=== PATIENT | male | born 1970 | race Caucasian/White ===

== ENCOUNTER 2017-04-05 19:00 | Observation (INO) | payer OTHER ==
[2017-04-05 19:14] VITALS: BMI 28.8
[2017-04-05] MEDS ORDERED: ASPIRIN 81 MG CHEWABLE TABLETS PO ONE (19:20)
--- NOTE | 2017-04-05 19:20 | PDOC ---
History of Present Illness <Bessie Calderon - Last Filed: 04/05/17 23:37> - History of Present Illness Beta Rowdy given by EMS (Core Measure): Yes <Larissa Clarke - Last Filed: 04/06/17 01:36> - General Chief Complaint: Lightheaded Stated Complaint: WEAKNESS/DIZZY Time Seen by Provider: 04/05/17 19:13 - History of Present Illness Initial Comments: 04/05/17 19:48 The patient is a 45 year old male, with significant past medical history for ESRD on HD with left arm fistula, CAD s/p triple bypass (2016), hypertension, Hyperlipidemia, and Diabetes Mellitus, who presents to the emergency department today via ems for evaluation of dizziness, diaphoresis, and generalized weakness today. He reports a mild, short lasting chest pain after lifting a heavy box with his son earlier today. He states his chest pain resolved on its own and reports becoming very sweaty and developing dizziness shortly after the chest pain resolved. He denies any chest pain currently, or since the onset before his ED arrival. He states his dizziness is "like the room is spinning". He states his dizziness has not resolved since the onset, however, has alleviate He states he became diaphoretic and dizzy shortly after the chest pain onset/ d slightly. He denies shortness of breath, headache, palpitations, blurred vision and dizziness. He denies fever, chills, nausea, vomit, diarrhea and constipation. He denies dysuria, frequency, urgency and hematuria. Allergies: NKDA Past surgical history: triple bypass Social history: Pt denies toxic habits PCP - Dr. Philip Yu ([phone]) Director Of Clinical Applications - Dr. Castro (Bessie Calderon) Past History <Bessie Calderon - Last Filed: 04/05/17 23:37> - Past Medical History Anemia: No Asthma: No Cancer: No Cardiac Disorders: Yes (mi ) CVA: No COPD: No CHF: No Dementia: No Diabetes: Yes (NIDDM) Dialysis: Yes (left arm AV fistula, M-W-F) GI Disorders: No Disorders: No HTN: Yes Hypercholesterolemia: Yes Liver Disease: No Suicide Attempt (Hx): No Seizures: No Thyroid Disease: No - Surgical History Cardiac Surgery: Yes (STENT-02/08/14,TRIPLE BYPASS 03/2015) - Immunization History Immunization Up to Date: Yes - Psycho/Social/Smoking Cessation Hx Anxiety: No Suicidal Ideation: No Smoking Status: No Smoking History: Never smoked Have you smoked in the past 12 months: No Number of Cigarettes Smoked Daily: 0 Hx Alcohol Use: No Drug/Substance Use Hx: No Substance Use Type: None Hx Substance Use Treatment: No <Larissa Clarke - Last Filed: 04/06/17 01:36> - Past Medical History Allergies/Adverse Reactions: Allergies Allergy/AdvReac Type Severity Reaction Status Date / Time No Known Allergies Allergy Verified 06/23/16 10:51 Home Medications: Ambulatory Orders Aspirin [ASA -] 81 mg PO DAILY 04/21/15 Atorvastatin Ca [Lipitor] 80 mg PO HS 04/21/15 Clopidogrel Bisulfate [Plavix -] 75 mg PO DAILY 04/21/15 Glipizide [Glipizide ER] 5 mg PO BID 04/21/15 Metoprolol Succinate [Toprol XL -] 50 mg PO BID #0 tab.sr.24h 12/03/15 Ranolazine [Ranexa] 500 mg PO BID 06/22/16 Cardiac Specific PMH - Complaint Specific PMHX Pacemaker: No <Larissa Clarke - Last Filed: 04/06/17 01:36> Review of Systems - Review of Systems Able to Perform ROS?: Yes <Bessie Calderon - Last Filed: 04/05/17 23:37> <Larissa Clarke - Last Filed: 04/06/17 01:36> - Review of Systems Comments:: 04/05/17 19:54 CONSTITUTIONAL: (+) generalized weakness,Absent: fever, chills, diaphoresis, malaise, loss of appetite HEENT: Absent: rhinorrhea, nasal congestion, throat pain, throat swelling, difficulty swallowing, mouth swelling, ear pain, eye pain, visual Changes CARDIOVASCULAR: (+) diaphoretic, Absent: chest pain, syncope, palpitations, irregular heart rate , lightheadedness, peripheral edema RESPIRATORY: Absent: cough, shortness of breath, dyspnea with exertion, orthopnea, wheezing, stridor, hemoptysis GASTROINTESTINAL: Absent: abdominal pain, abdominal distension, nausea, vomiting, diarrhea, constipation, melena, hematochezia GENITOURINARY: Absent: dysuria, frequency, urgency, hesitancy, hematuria, flank pain, genital pain MUSCULOSKELETAL: Absent: myalgia, arthralgia, joint swelling SKIN: Absent: rash, itching, pallor HEMATOLOGIC/IMMUNOLOGIC: Absent: easy bleeding, easy bruising, lymphadenopathy, frequent infections ENDOCRINE: Absent: unexplained weight gain, unexplained weight loss, heat intolerance, cold intolerance NEUROLOGIC: (+) dizziness. Absent: headache, focal weakness or paresthesias, unsteady gait, seizure, mental status changes, bladder or bowel incontinence PSYCHIATRIC: Absent: anxiety, depression, suicidal or homicidal ideation, hallucinations. (Bessie Calderon) *Physical Exam <Bessie Calderon - Last Filed: 04/05/17 23:37> <Larissa Clarke - Last Filed: 04/06/17 01:36> - Vital Signs Last Vital Signs Temp Pulse Resp BP Pulse Ox 97.8 F 64 18 157/78 99 04/05/17 19:12 04/05/17 19:12 04/05/17 19:12 04/05/17 19:12 04/05/17 19:12 - Physical Exam Comments: 04/05/17 19:56 GENERAL: Well developed, well nourished. Awake and alert. No acute distress. HEENT: Normocephalic, atraumatic. PERRLA, EOMI. No conjunctival pallor. Sclera are non- icteric. Moist mucous membranes. Oropharynx is clear. NECK: Supple. Full ROM. No JVD. Carotid pulses 2+ and symmetric, without bruits. No thyromegaly. No lymphadenopathy. CARDIOVASCULAR: Regular rate and rhythm. No murmurs, rubs, or gallops. Distal pulses are 2+ and symmetric. PULMONARY: No evidence of respiratory distress. Lungs clear to auscultation bilaterally. No wheezing, rales or rhonchi. ABDOMINAL: Soft. Non-tender. Non-distended. No rebound or guarding. No organomegaly. Normoactive bowel sounds. MUSCULOSKELETAL Normal range of motion at all joints. No bony deformities or tenderness. No CVA tenderness. EXTREMITIES: No cyanosis. No clubbing. No edema. No calf tenderness. SKIN: Warm and dry. Normal capillary refill. No rashes. No jaundice. NEUROLOGICAL: Alert, awake, appropriate. Cranial nerves 2-12 intact. Normoreflexic in the upper and lower extremities. Normal speech. Toes are down-going bilaterally. Gait is normal without ataxia. PSYCHIATRIC: Cooperative. Good eye contact. Appropriate mood and affect. (Bessie Calderon) ED Treatment Course - LABORATORY CBC & Chemistry Diagram: 04/05/17 19:27 04/05/17 19:27 <Bessie Calderon - Last Filed: 04/05/17 23:37> - LABORATORY CBC & Chemistry Diagram: 04/05/17 19:27 04/05/17 19:27 <Larissa Clarke - Last Filed: 04/06/17 01:36> - ADDITIONAL ORDERS Additional order review: Laboratory Results 04/05/17 04/05/17 04/05/17 19:27 19:27 19:27 INR 1.10 Sodium 138 Potassium 3.8 Chloride 103 Carbon Dioxide 25 Anion Gap 10 BUN 49 H Creatinine 7.1 H D Creat Clearance w eGFR 8.42 Random Glucose 75 Calcium 8.3 L Total Bilirubin 0.4 AST 27 D ALT 39 Alkaline Phosphatase 173 H D Creatine Kinase 563 H Creatine Kinase Index 0.7 CK-MB (CK-2) 4.207 H Troponin I 0.03 D B-Natriuretic Peptide 90685.94 H Total Protein 7.7 Albumin 3.8 D 04/05/17 19:27 RBC 3.48 L MCV 90.3 MCHC 34.4 RDW 13.6 MPV 9.2 Neutrophils % 53.7 Lymphocytes % 28.7 Monocytes % 11.5 H Eosinophils % 5.1 H Basophils % 1.0 - RADIOLOGY Radiology Studies Ordered: Category Date Time Status HEAD CT WITHOUT CONTRAST [CT] Stat CT Scan 04/05/17 21:13 Completed CHEST X-RAY PORTABLE* [RAD] Stat Radiology 04/05/17 19:15 Taken Radiograph Interpretation: 04/05/17 23:[address] was read by Dr. Degroot at 22:50 Impression: no evidence of acute intracranial pathology (Bessie Calderon) - Medications Given in the ED: ED Medications Discontinued Medications Generic Name Dose Route Start Last Admin Trade Name Freq PRN Reason Stop Dose Admin Aspirin 162 mg 04/05/17 19:20 04/05/17 19:46 Asa - PO 04/05/17 19:21 162 mg ONCE ONE Administration Metoprolol Succinate 50 mg 04/05/17 19:21 04/05/17 19:46 Toprol Xl - PO 04/05/17 19:22 Not Given ONCE ONE Medical Decision Making <Bessie Calderon - Last Filed: 04/05/17 23:37> <Larissa Clarke - Last Filed: 04/06/17 01:36> - Medical Decision Making 04/05/17 23:27 Dr. Castro was paged via phone answering service at this time requesting a call back or doctor to doctor consult. 04/05/17 23:38 Dr. Castro returned the call and the patient's case was discussed. (Bessie Calderon) 04/05/17 23:07 46-year-old male with a past medical history significant for coronary artery disease, coronary stents, CABG, end-stage renal disease. Brought in by ambulance today after having heart palpitations, lightheadedness, dizziness, becoming diaphoretic with left arm pain EKG did not show any acute ischemia, but did show an old infarct. He was sinus bradycardia at 59 -His first troponin was negative Dr. Castro's his grain elevator motor starter He complained of vertigo and headache and his CAT scan was done and was negative for any acute intracranial pathology He did have an echo done 12/02/2015 that showed an EF of 45%. His left ventricle was mildly dilated and LV systolic function moderately reduced. There was mild to moderate global hypokinesis of the left ventricle. There was mild to moderate mitral regurg. There was moderate tricuspid regurgitation. There was moderate pulmonary hypertension. Mild aortic regurg. There was no pericardial effusion Patient has taken aspirin, Plavix, metoprolol 04/05/17 23:47 Spoke with his grain elevator motor starter , Dr. Castro and this patient was hoping to be on the kidney transplant list, so this required an echo and stress test. He had a stress test done in the last 10 days and his grain elevator motor starter said his ejection fraction is extremely poor, about 15% and there was global hypokinesis of the ventricles. -pt to be admitted to telemetry to r/o HI 04/06/17 01:36 (Larissa Clarke) *DC/Admit/Observation/Transfer <Bessie Calderon - Last Filed: 04/05/17 23:37> - Discharge Dispostion Admit: Yes <Larissa Clarke - Last Filed: 04/06/17 01:36> Diagnosis at time of Disposition: ESRD (end stage renal disease) on dialysis CAD (coronary artery disease) Qualifiers: Coronary Disease-Associated Artery/Lesion type: [place] artery [place] vs. transplanted heart: [place] heart Associated angina: with other forms of angina Qualified Code(s): I25.118 - Atherosclerotic heart disease of [place] coronary artery with other forms of angina pectoris Chest pain Qualifiers: Chest pain type: unspecified Qualified Code(s): R07.9 - Chest pain, unspecified Diabetes mellitus Qualifiers: Diabetes mellitus type: type 1 Diabetes mellitus complication status: with kidney complications Diabetes mellitus complication detail: with chronic kidney disease Chronic kidney disease stage: unspecified stage Qualified Code(s): E10.22 - Type 1 diabetes mellitus with diabetic chronic kidney disease - Referrals - Attestations Scribe Attestion: 04/05/17 19:56 Documentation prepared by Bessie Calderon, acting as medical concierge for Larissa Clarke MD (Bessie Caldeorn)
[2017-04-05] MEDS ORDERED: METOPROLOL SUCCINATE 50 MG TAB.SR.24H (FP) PO ONE (19:21)
[2017-04-05 19:39] LABS: EOSINOPHIL 5.1 % (0-4.5); MCH 31.1 pg (25.7-33.7); MCHC 34.4 g/dl (32.0-35.9); MEAN CELL VOLUME 90.3 fl (80-96); MEAN PLT VOLUME 9.2 fl (7.5-11.1); NEUTROPHILS 53.7 % (42.8-82.8); PLATELET COUNT 207 K/MM3 (134-434); RDW 13.6 % (11.9-15.9)
[2017-04-05] MEDS ORDERED: ASPIRIN 81 MG CHEWABLE TABLETS ONE (19:40)
[2017-04-05 19:56] LABS: INR 1.1 (0.82-1.09); PROTHROMBIN TIME (PATIENT) 12.1 SEC (9.98-11.88)
[2017-04-05 20:17] LABS: ALBUMIN 3.8 g/dl (3.4-5.0); ANION GAP 10 (8-16); BILIRUBIN,TOTAL 0.4 mg/dL (0.2-1.0); CALCIUM 8.3 mg/dL (8.5-10.1); CO2 25 mmol/L (21-32); CREATININE 7.1 mg/dL (0.7-1.3); GLUCOSE,RANDOM 75 mg/dL (74-106); SGOT/AST 27 U/L (15-37); SGPT/ALT 39 U/L (12-78); TOT PROT 7.7 g/dl (6.4-8.2)
[2017-04-05 20:19] LABS: ALK PHOS 173 U/L (45-117); CPK 563 IU/L (39-308); TROPONIN I 0.03 ng/ml (0.00-0.05)
--- NOTE | 2017-04-06 00:33 | HP ---
CHIEF COMPLAINT: dizziness, SOB, chest pain PCP: Aimee, Cardiology: Matthew HISTORY OF PRESENT ILLNESS: This is a 46 year old male with a past medical history significant for ESRD on dialysis, CAD s/p CABG and stents, HTN, CHF, DM who presented to the ED with an episode of dizziness, diaphoresis, generalized weakness and chest pain after lifting a heavy box. He is feeling much better now; denies CP, dizziness. Reports SOB at time of incident but none further. ER course was notable for: (1) troponin neg x 1 (2) BNP 56935.94 (3) Recent Travel: pt denies PAST MEDICAL HISTORY: ESRD on HD CAD HTN HLD CHF DM PAST SURGICAL HISTORY: CABG, 3 Stents, multiple episodes, total of 7 AV fistula L arm Social History: Smoking: pt denies Alcohol: pt denies Drugs: pt denies Family History: mother-HTN, kidney stones father-unknown 4 brothers, 1 sister, no medical problems 5 children, no medical problems Allergies No Known Allergies Allergy (Verified 06/23/16 10:51) HOME MEDICATIONS: 3 Medication Instructions Recorded Aspirin [ASA -] 81 mg PO DAILY 04/21/15 Atorvastatin Ca [Lipitor] 80 mg PO HS 04/21/15 Clopidogrel Bisulfate [Plavix -] 75 mg PO DAILY 04/21/15 Glipizide [Glipizide ER] 5 mg PO BID 04/21/15 Metoprolol Succinate [Toprol XL -] 50 mg PO BID #0 tab.sr.24h 12/03/15 Ranolazine [Ranexa] 500 mg PO BID 06/22/16 REVIEW OF SYSTEMS CONSTITUTIONAL: Present: generalized weakness, malaise Absent: fever, chills, diaphoresis, loss of appetite, weight change HEENT: Absent: rhinorrhea, nasal congestion, throat pain, throat swelling, difficulty swallowing, mouth swelling, ear pain, eye pain, visual changes CARDIOVASCULAR: Present: chest pain, lightheadedness Absent: syncope, palpitations, irregular heart rate, peripheral edema RESPIRATORY: Absent: cough, shortness of breath, dyspnea with exertion, orthopnea, wheezing, stridor, hemoptysis GASTROINTESTINAL: Absent: abdominal pain, abdominal distension, nausea, vomiting, diarrhea, constipation, melena, hematochezia GENITOURINARY: Absent: dysuria, frequency, urgency, hesitancy, hematuria, flank pain, genital pain MUSCULOSKELETAL: Absent: myalgia, arthralgia, joint swelling, back pain, neck pain SKIN: Absent: rash, itching, pallor HEMATOLOGIC/IMMUNOLOGIC: Absent: easy bleeding, easy bruising, lymphadenopathy, frequent infections ENDOCRINE: Absent: unexplained weight gain, unexplained weight loss, heat intolerance, cold intolerance NEUROLOGIC: Present: dizziness Absent: headache, focal weakness or paresthesias, unsteady gait, seizure, mental status changes, bladder or bowel incontinence PSYCHIATRIC: Absent: anxiety, depression, suicidal or homicidal ideation, hallucinations. PHYSICAL EXAMINATION Vital Signs - 24 hr 3 04/05/17 19:12 Temperature 97.8 F Pulse Rate 64 Respiratory 18 Rate Blood Pressure 157/78 O2 Sat by Pulse 99 Oximetry (%) GENERAL: Awake, alert, and fully oriented, in no acute distress. HEAD: Normal with no signs of trauma. EYES: Pupils equal, round and reactive to light, extraocular movements intact, sclera anicteric, conjunctiva clear. No lid lag. EARS, NOSE, THROAT: Ears normal, nares patent, oropharynx clear without exudates. Moist mucous membranes. NECK: Normal range of motion, supple without lymphadenopathy, JVD, or masses. LUNGS: Breath sounds equal, clear to auscultation bilaterally. No wheezes, and no crackles. No accessory muscle use. HEART: Regular rate and rhythm, normal S1 and S2 without murmur, rub or gallop. ABDOMEN: Soft, nontender, not distended, normoactive bowel sounds, no guarding, no rebound, no masses. No hepatomegaly or splenomegaly. MUSCULOSKELETAL: Normal range of motion at all joints. No bony deformities or tenderness. No CVA tenderness. UPPER EXTREMITIES: 2+ pulses, warm, well-perfused. No cyanosis. No clubbing. No peripheral edema. LOWER EXTREMITIES: 2+ pulses, warm, well-perfused. No calf tenderness. No peripheral edema. NEUROLOGICAL: Cranial nerves II-XII intact. Normal speech. Normal gait. PSYCHIATRIC: Cooperative. Good eye contact. Appropriate mood and affect. SKIN: Warm, dry, normal turgor, no rashes or lesions noted, normal capillary refill. Laboratory Results - last 24 hr 3 04/05/17 04/05/17 04/05/17 19:27 19:27 19:27 WBC 6.0 RBC 3.48 L Hgb 10.8 L Hct 31.5 L MCV 90.3 MCH 31.1 MCHC 34.4 RDW 13.6 Plt Count 207 D MPV 9.2 Neutrophils % 53.7 Lymphocytes % 28.7 Monocytes % 11.5 H Eosinophils % 5.1 H Basophils % 1.0 INR 1.10 Sodium 138 Potassium 3.8 Chloride 103 Carbon Dioxide 25 Anion Gap 10 BUN 49 H Creatinine 7.1 H D Creat Clearance w eGFR 8.42 Random Glucose 75 Calcium 8.3 L Total Bilirubin 0.4 AST 27 D ALT 39 Alkaline Phosphatase 173 H D Creatine Kinase 563 H Creatine Kinase Index 0.7 CK-MB (CK-2) 4.207 H Troponin I 0.03 D B-Natriuretic Peptide 86854.94 H Total Protein 7.7 Albumin 3.8 D ECG: Sinus yolande, vent rate [address]/T changes: Inverted T wave lead 1, V5, V6 Lead 2 flattened T wave Inverted P wave V1, V2 Radiology Reports CXR: No obvious infiltrates/effusions, + Cardiomegaly Cranial CT without contrast Clinical information: vertigo Multiplanar imaging was performed. Intravenous contrast was not administered. No intracranial hemorrhage is seen. There is no discrete infarct within the limitations of CT. No extra-axial fluid collection is noted. There is no gross mass lesion. The ventricles and cisterns appear unremarkable. The calvarium appears intact. The partially imaged paranasal sinuses demonstrate no opacification. Impression: No CT evidence of acute intracranial pathology. Bilateral cavernous carotid artery atherosclerotic calcifications are seen which are probably somewhat more prominent than would be expected for the patient's chronologic age. Reported By: Hira Degroot MD 04/05/17 6130 ASSESSMENT/PLAN: 46yM with PMH ESRD on HD, CAD [id number], stent x7, HTN, HLD, DM presented to the ED with episode of lightheadedness, dizziness, weakness, chest pain and SOB after lifting a heavy box today. Chest pain - troponin neg x 1, trend x 2 more - ED physician spoke with Dr. Castro, pt had stress test less than 10 days ago, + EF 15%, severe LV global hypokinesis - admit for obs - cardiology consult - cont home toprol, ranexa, plavix and ASA elevated BNP - likely due to severely reduced EF, chronic heart disease as well as ESRD HTN - cont home toprol HLD - cont home lipitor DM - cont glipizide. - A1C in am - novolog sliding scale elevated Alk phos - repeat in am - will check Vit D level in am DVT PPX - chemoprophylaxis deferred as expected LOS < 48h FEN - tolerating po - BMP in am - diabetic/low sodium diet Dispo: Pt currently requires inpatient observation for management of his emergent condition. Visit type - Emergency Visit Emergency Visit: Yes ED Registration Date: 04/05/17 Care time: The patient presented to the Emergency Department on the above date and was hospitalized for further evaluation of their emergent condition. - New Patient This patient is new to me today: Yes Date on this admission: 04/06/17 - Critical Care Critical Care patient: No
--- NOTE | 2017-04-06 01:51 | PDOC ---
*Heart Score (ED) - History History: Slightly suspicious - Electrocardiogram EKG: Non specific repolarization disturbance - Age Age: </= 45 - Risk Factors Risk Factors Heart Score: Yes Hx Hypercholesterolemia, Yes Hx Hypertension, Yes Hx Diabetes Based on the list above the patient has:: >/=3 risk factors or Hx atherosclerotic disease - Troponin Troponin: </= normal limit - Score Heart Score - Total: 3
[2017-04-06 04:18] LABS: TROPONIN I 0.03 ng/ml (0.00-0.05)
[2017-04-06] MEDS ORDERED: INSULIN SLIDING SCALE (NOVOLOG) 1 VIAL SQ SCH (07:00)
[2017-04-06] MEDS ORDERED: glipiZIDE-XL 5 MG TAB.ER.24 PO SCH (07:00)
[2017-04-06] MEDS ORDERED: glipiZIDE 5 MG TABLET (FP) ONE (08:33)
[2017-04-06 08:35] LABS: BASOPHIL 0.9 % (0-2.0); EOSINOPHIL 3.1 % (0-4.5); MCH 30.1 pg (25.7-33.7); MCHC 33.1 g/dl (32.0-35.9); MEAN CELL VOLUME 90.9 fl (80-96); MEAN PLT VOLUME 9.2 fl (7.5-11.1); NEUTROPHILS 67.7 % (42.8-82.8); PLATELET COUNT 208 K/MM3 (134-434); WHITE BLOOD COUNT 6.7 K/mm3 (4.0-10.0)
[2017-04-06 09:08] LABS: ALBUMIN 3.6 g/dl (3.4-5.0); ANION GAP 12 (8-16); BILIRUBIN,TOTAL 0.4 mg/dL (0.2-1.0); CALCIUM 8.4 mg/dL (8.5-10.1); CO2 23 mmol/L (21-32); CREATININE 7.2 mg/dL (0.7-1.3); GLUCOSE,RANDOM 212 mg/dL (74-106); PHOSPHOROUS 3.9 mg/dL (2.5-4.9); SGOT/AST 23 U/L (15-37); SGPT/ALT 36 U/L (12-78); TOT PROT 7.4 g/dl (6.4-8.2)
[2017-04-06 09:09] LABS: ALK PHOS 176 U/L (45-117); TROPONIN I 0.03 ng/ml (0.00-0.05)
[2017-04-06] MEDS ORDERED: ASPIRIN 81 MG CHEWABLE TABLETS PO SCH (10:00)
[2017-04-06] MEDS ORDERED: RANOLAZINE E.R. 500 MG TABLET (FP) PO SCH (10:00)
[2017-04-06] MEDS ORDERED: CLOPIDOGREL BISULFATE 75 MG TABLET (FP) PO SCH (10:00)
[2017-04-06] MEDS ORDERED: METOPROLOL SUCCINATE 50 MG TAB.SR.24H (FP) PO SCH (10:00)
--- NOTE | 2017-04-06 10:45 | EKG ---
Test Reason : Blood Pressure : / mmHG Vent. Rate : 059 BPM Atrial Rate : 059 BPM P-R Int : 152 ms QRS Dur : 116 ms QT Int : 470 ms P-R-T Axes : 043 015 141 degrees QTc Int : 465 ms SINUS BRADYCARDIA POSSIBLE LEFT ATRIAL ENLARGEMENT possible lateral ischemia LATERAL INFARCT (CITED ON OR BEFORE 01-DEC-2015) ABNORMAL ECG WHEN COMPARED WITH ECG OF 01-DEC-2015 07:33, PREMATURE VENTRICULAR COMPLEXES ARE NO LONGER PRESENT VENT. RATE HAS DECREASED BY 32 BPM Confirmed by BOBBY ANDREW, MARVA ([id number]) on 04/06/2017 10:45:15 AM Referred By: Confirmed By:MARVA ROSALES MD
--- NOTE | 2017-04-06 10:54 | DS ---
Physical Exam: SUBJECTIVE: Patient seen and examined in the ED. States his sweating and dizziness have resolved. He is eager to go home. Denies fever, chill, cp, sob. OBJECTIVE: Vital Signs Period Temp Pulse Resp BP Sys/Link Pulse Ox Last 24 Hr 85 18-18 183/85 99-100 PE Neuro: alert, awake, cn 2-12intact Pulm: CTAB CV: s1 s2 +systolic murmur Abd: s nt nd + bs Ext: LUE AVF + thrill, + bruit Laboratory Results - last 24 hr 04/06/17 04/06/17 04/06/17 03:26 08:15 08:15 WBC 6.7 RBC 3.69 L Hgb 11.1 L Hct 33.6 L MCV 90.9 MCH 30.1 MCHC 33.1 RDW 14.0 Plt Count 208 MPV 9.2 Neutrophils % 67.7 D Lymphocytes % 19.6 D Monocytes % 8.7 Eosinophils % 3.1 Basophils % 0.9 Sodium Potassium Chloride Carbon Dioxide Anion Gap BUN Creatinine Creat Clearance w eGFR Random Glucose Hemoglobin A1c % Calcium Phosphorus Magnesium Total Bilirubin AST ALT Alkaline Phosphatase Creatine Kinase 382 H 379 H Creatine Kinase Index 0.9 0.8 CK-MB (CK-2) 3.746 H 3.273 Troponin I 0.03 0.03 Total Protein Albumin 04/06/17 04/06/17 08:15 08:15 WBC RBC Hgb Hct MCV MCH MCHC RDW Plt Count MPV Neutrophils % Lymphocytes % Monocytes % Eosinophils % Basophils % Sodium 138 Potassium 4.3 Chloride 103 Carbon Dioxide 23 Anion Gap 12 BUN 52 H Creatinine 7.2 H Creat Clearance w eGFR 8.28 Random Glucose 212 H D Hemoglobin A1c % 8.2 H D Calcium 8.4 L Phosphorus 3.9 Magnesium 2.0 Total Bilirubin 0.4 AST 23 ALT 36 Alkaline Phosphatase 176 H Creatine Kinase Creatine Kinase Index CK-MB (CK-2) Troponin I Total Protein 7.4 Albumin 3.6 HOSPITAL COURSE: Date of Admission:04/05/17 Date of Discharge: 04/06/17 Minutes to complete discharge: 36 Discharge Summary Reason For Visit: DIABETES MELLITUS/CORONARY ARTERY DIASEASE/END STA Current Active Problems Chest pain (Acute) CAD (coronary artery disease) (Chronic) Diabetes mellitus (Chronic) ESRD (end stage renal disease) on dialysis (Chronic) Hospital Course: Initial Hospital Course: Briefly, this 46 year old male with a past medical history significant for ESRD on dialysis, CAD s/p CABG 2014 and stents (x7), HTN, CHF, DM II presented to the ED with an episode of dizziness, diaphoresis, generalized weakness and chest pain after lifting a heavy box. Subsequent Hospital Course/Progress Note/Discharge Summary: Assessment/Plan 45 yo male here with cp, known CAD hx (mult prior PCIs, then cabg 2014 last stent 09/2014?), dCHF, ESRD on HD, HTN, DM here with episode of dizzy/ diaphoresis. Plan: Dizziness/Diaphoresis - Likely vasovagal - EKG no acute ischemic changes - r/o [place] serial trops negative - Discussed with Nephrology to monitor BP during HD, next session is today @ 1800 Chronic systolic CHF - Not in exacerbation - Continue troprol - Off REMY d/t ESRD CAD, Chronic - s/p multiple stents, CABG - Continue asa, plavix, ranexa 500mg BID - Recent stress [address] Castro negative for ischemia - Refer to cardiology note for detailed procedures Elevated BNP - likely due to severely reduced EF, chronic heart disease as well as ESRD - HD tonight outpt HD center HTN - cont home toprol HLD - cont home lipitor DM - cont glipizide Dispo: - Home with HD and cardiac f/u - Pt aware and agrees to above plan Condition: Stable - Instructions Diet, Activity, Other Instructions: Please return to the ED for any new, persistent, or worsening symptoms. Follow up with your PCP in 1 week Take home medications as directed Continue HD on MWF schedule Follow up with cardiology next week Referrals: Philip Yu [Primary Care Provider] - Darren Castro MD [Staff Physician] - Disposition: HOME - Home Medications Comprehensive Discharge Medication List: Ambulatory Orders Aspirin [ASA -] 81 mg PO DAILY 04/21/15 Atorvastatin Ca [Lipitor] 80 mg PO HS 04/21/15 Clopidogrel Bisulfate [Plavix -] 75 mg PO DAILY 04/21/15 Glipizide [Glipizide ER] 5 mg PO BID 04/21/15 Metoprolol Succinate [Toprol XL -] 50 mg PO BID #0 tab.sr.24h 12/03/15 Ranolazine [Ranexa] 500 mg PO BID 06/22/16 This patient is new to me today: Yes Date on this admission: 04/06/17 Emergency Visit: Yes ED Registration Date: 04/05/17 Care time: The patient presented to the Emergency Department on the above date and was hospitalized for further evaluation of their emergent condition. Critical Care patient: No - Discharge Referral Referred to [facility] Med P.C[facility] No
[2017-04-06 11:38] VITALS: BP 164/91; PULSE 88; TEMP 98
--- NOTE | 2017-04-06 12:04 | CON.CARD ---
Cardiology Consult (text) - Consultation Consultation Note: Chief Complaint: diaphoresis, dizzy History of Present Illness: 46 yo male here with diaphoresis, dizziness. Last week pt reports that they began taking more vol off during HD sessions to reach a lower dry wt. He had been feeling fine but then yesterday he was walking outside and felt weak and dizzy and had profuse sweating. No loc. No cp, sob, palps, pnd, orthopnea, le edema. Son called ambulance and brought to ER. Sxs resolved shortly and now pt feels fine, asking to go home. Sees me for cardio. PMH: ESRD known CAD hx (mult prior PCIs, then cabg 2014). HTN HPL DM never cigs - Past Medical History Cardio/Vascular: Yes: CAD, HTN, Hyperlipdemia Renal/: Yes: Renal Failure Endocrine: Yes: Diabetes Mellitus - Past Surgical History Past Surgical History: Yes: CABG (04/09/15 at [facility]), Stent (7 cardiac stents) - Alcohol/Substance Use Hx Alcohol Use: No History of Substance Use: reports: None - Smoking History Smoking history: Never smoked Have you smoked in the past 12 months: No Aproximately how many cigarettes per day: 0 - Social History Usual Living Arrangement: Alone ADL: Independent Occupation: works in a custodial History of Recent Travel: No Home Medications - Allergies Allergies/Adverse Reactions: Allergies Allergy/AdvReac Type Severity Reaction Status Date / Time No Known Allergies Allergy Verified 06/23/16 10:51 - Home Medications Home Medications Medication Instructions Recorded Aspirin [ASA -] 81 mg PO DAILY 04/21/15 Atorvastatin Ca [Lipitor] 80 mg PO HS 04/21/15 Clopidogrel Bisulfate [Plavix -] 75 mg PO DAILY 04/21/15 Glipizide [Glipizide ER] 5 mg PO BID 04/21/15 Metoprolol Succinate [Toprol XL -] 50 mg PO BID #0 tab.sr.24h 12/03/15 Ranolazine [Ranexa] 500 mg PO BID 06/22/16 Family Disease History - Family Disease History Family Disease History: Other: Father (estranged), Mother (kidney stones, HTN), Brother (4 brothers healthy and living), Sister (1 sister healthy and living) Review of Systems - Review of Systems Constitutional: denies: Chills, Fever Eyes: denies: Eye Pain HENT: denies: Nasal Congestion Neck: denies: Stiffness Cardiovascular: denies: Palpitations Respiratory: reports: PND. denies: Orthopnea Gastrointestinal: denies: Diarrhea, Rectal Bleeding Genitourinary: denies: Burning, Hematuria Musculoskeletal: denies: Muscle Pain Integumentary: denies: Rash Neurological: denies: Numbness, Seizure, Syncope Hematology/Lymphatic: denies: Excessive Bleeding Vital Signs: Vital Signs Period Temp Pulse Resp BP Sys/Link Pulse Ox Last 24 Hr 97.8 F-98.0 F 64-88 16-18 157-183/78-91 99-100 Constitutional: Yes: Well Nourished, No Distress Eyes: No: Sclera Icterus HENT: No: Nasal Congestion Neck: No: Decreased ROM Respiratory: Yes: CTA Bilaterally. No: Accessory Muscle Use, Rales, Wheezes Gastrointestinal: Yes: Normal Bowel Sounds. No: Distention, Hepatomegaly, Palpable Mass, Tenderness Cardiovascular: Yes: Regular Rate and Rhythm JVD: no Carotid Bruit: No PMI: Non-Displaced Heart Sounds: Yes: S1, S2. No: Gallop Murmur: Yes: Systolic Murmur (HSM at LLSB). No: Diastolic Murmur Musculoskeletal: Yes: Other (No kyphosis) Extremities: No: Cold, Cyanosis Edema: No Peripheral Pulses: 2+ Left Carotid, 2+ Right Carotid, 2+ Left Doralis Pedis, 2+ Right Dorsalis Pedis Integumentary: No: Jaundice diaphoresis Neurological: Yes: Alert, Oriented (x3) Psychiatric: No: Agitated - Other Data Labs, Other Data: Laboratory Last Values WBC 6.7 K/mm3 (4.0-10.0) 04/06/17 08:15 RBC 3.69 M/mm3 (4.00-5.60) L 04/06/17 08:15 Hgb 11.1 GM/dL (11.7-16.9) L 04/06/17 08:15 Hct 33.6 % (35.4-49) L 04/06/17 08:15 MCV 90.9 fl (80-96) 04/06/17 08:15 MCH 30.1 pg (25.7-33.7) 04/06/17 08:15 MCHC 33.1 g/dl (32.0-35.9) 04/06/17 08:15 RDW 14.0 % (11.9-15.9) 04/06/17 08:15 Plt Count 208 K/MM3 (134-434) 04/06/17 08:15 MPV 9.2 fl (7.5-11.1) 04/06/17 08:15 Neutrophils % 67.7 % (42.8-82.8) D 04/06/17 08:15 Lymphocytes % 19.6 % (8-40) D 04/06/17 08:15 Monocytes % 8.7 % (3.8-10.2) 04/06/17 08:15 Eosinophils % 3.1 % (0-4.5) 04/06/17 08:15 Basophils % 0.9 % (0-2.0) 04/06/17 08:15 INR 1.10 (0.82-1.09) 04/05/17 19:27 Sodium 138 mmol/L (136-145) 04/06/17 08:15 Potassium 4.3 mmol/L (3.5-5.1) 04/06/17 08:15 Chloride 103 mmol/L (98-107) 04/06/17 08:15 Carbon Dioxide 23 mmol/L (21-32) 04/06/17 08:15 Anion Gap 12 (8-16) 04/06/17 08:15 BUN 52 mg/dL (7-18) H 04/06/17 08:15 Creatinine 7.2 mg/dL (0.7-1.3) H 04/06/17 08:15 Creat Clearance w eGFR 8.28 (>60) 04/06/17 08:15 Random Glucose 212 mg/dL (74-106) H D 04/06/17 08:15 Hemoglobin A1c % 8.2 % (4.8-6.0) H D 04/06/17 08:15 Calcium 8.4 mg/dL (8.5-10.1) L 04/06/17 08:15 Phosphorus 3.9 mg/dL (2.5-4.9) 04/06/17 08:15 Magnesium 2.0 mg/dL (1.8-2.4) 04/06/17 08:15 Total Bilirubin 0.4 mg/dL (0.2-1.0) 04/06/17 08:15 AST 23 U/L (15-37) 04/06/17 08:15 ALT 36 U/L (12-78) 04/06/17 08:15 Alkaline Phosphatase 176 U/L (45-117) H 04/06/17 08:15 Creatine Kinase 379 IU/L (39-308) H 04/06/17 08:15 Creatine Kinase Index 0.8 % (0.0-5.0) 04/06/17 08:15 CK-MB (CK-2) 3.273 ng/mL (0.5-3.6) 04/06/17 08:15 Troponin I 0.03 ng/ml (0.00-0.05) 04/06/17 08:15 B-Natriuretic Peptide 80962.94 pg/ml (5-125) H 04/05/17 19:27 Total Protein 7.4 g/dl (6.4-8.2) 04/06/17 08:15 Albumin 3.6 g/dl (3.4-5.0) 04/06/17 08:15 ecg 04/05/17: sr, nl intervals, lat twis, no st changes, no sig change prior ecg cxr: clear lungs Echo 01/2014: normal LV/RV function, mild LVH, no sig valv abn echo here 11/2015: mild lve, mild-mod dec lvef, global HK, nl rv, mild lae, mild- mod mr, mod tr, rvsp 40-50, mild ar, mod pr Assessment/Plan 45 yo male here with cp, known CAD hx (mult prior PCIs, then cabg 2014 last stent 09/2014?), dCHF, ESRD on HD, HTN, DM here with episode of dizzy/ diaphoresis. dizziness, diaphoresis: -possible vagal episode, possibly related to increased vol removed during hd sessions this past week -no obvious cardiac etiology -pt feeling well now, back to baseline chronic syst CHF: -hx of ischemic CM -stable vol status with HD -cont toprol, no ester 2/2 esrd CAD, chronic: -severe 3VD on initial angio 01/2014--offerred CABG then , declined and wanted trial of multi-vessel PCI -s/p prox LAD HALLIE PCI 01/2014 , then staged bifurcation distal LCx/ OM1 HALLIE stent (V stenting) 02/2014--residual diffuse RCA disease -05/2014 CBPTCA of severe diffuse ISR of bifurcation distal LCx/ OM1 HALLIE stent ( V stenting) -Re-cathed 09/2014 and found to have severe diffuse ISR of bifurcation distal LCx/ OM1 HALLIE stent (V stenting), and new moderate disease in prox LAD just proximal to patent old stent, residual diffuse RCA disease--medical rx. New HALLIE to OM1 done, distal LCx is now jailed and TO -Re-cathed 03/2015: ISR of second layer of HALLIE in OM and progression of CAD elsewhere--referred for CABG--agreed (off pump--RAMIREZ to LAD, SP to OM and SVG to RPDA) -then had another cath 2015 with no interventions done as no culprit lesions identified -cad stable presently, recent nuclear stress test in office this month showed no ischemia -cont home toprol, statin, ranexa -on DAPT since prior to cabg (mult PCIs with ISRs), tolerating Anemia -sec to ESRD in past, chronic -counts stable here DM-type 2 -defer to primary team ESRD on HD -per renal HTN -stable on meds cardiac eaton stable for dc
[2017-04-06] MEDS ORDERED: ATORVASTATIN CA 80 MG TABLET (FP) PO SCH (22:00)
== END 2017-04-06 11:24 | disposition home or self-care (01) ==
LOC: JER 19:00 → JERBED 23:53
PROVIDERS: ADMIT Internal Medicine; ATTEND Nurse Practitioner Acute Care
DX: I12.0 Hypertensive chronic kidney disease with stage 5 chronic kidney disease or end stage renal disease (principal); N18.6 End stage renal disease; Z99.2 Dependence on renal dialysis; I25.118 Atherosclerotic heart disease of native coronary artery with other forms of angina pectoris; R07.9 Chest pain, unspecified; E10.22 Type 1 diabetes mellitus with diabetic chronic kidney disease; E78.5 Hyperlipidemia, unspecified; Z95.1 Presence of aortocoronary bypass graft; Z79.82 Long term (current) use of aspirin; Z79.84 Long term (current) use of oral hypoglycemic drugs; R79.89 Other specified abnormal findings of blood chemistry; R74.8 Abnormal levels of other serum enzymes; I50.22 Chronic systolic (congestive) heart failure
CPT/HCPCS: 36415; 70450-TC; 71010-TC; 80053; 82306; 82553; 83036; 83735; 83880; 84100; 84484; 85025; 85610; 93005; 93010; 99285-25; G0378

== ENCOUNTER 2018-10-12 13:40 | Observation (INO) | payer OTHER ==
--- NOTE | 2018-10-12 14:28 | PDOC ---
History of Present Illness - General Chief Complaint: Shortness of Breath Stated Complaint: SENT BY PMD FOR PNEUMONIA Time Seen by Provider: 10/12/18 14:09 History Source: Patient Exam Limitations: Clinical Condition - History of Present Illness Initial Comments: 10/12/18 14:30 Patient with history of congestive heart failure, hyperlipidemia, known insulin- dependent diabetes, renal failure and cardiac bypass sent informal urgent care for admission for pneumonia. Patient reported 2 weeks history of yellow productive cough with fevers, nasal congestion, shortness of breath and intermittent wheezing with malaise. Patient was seen with urgent care today which x-ray shows right-sided pleural effusion with right infiltrate. Patient present with x-ray imaging and reported reading pneumonia. Patient called neurology who advised him to come in for IV antibiotics for pneumonia. Patient reported last fever 4 days ago 10 3F. Patient denies any other symptoms Timing/Duration: other (2 weeks) Past History - Past Medical History Allergies/Adverse Reactions: Allergies Allergy/AdvReac Type Severity Reaction Status Date / Time No Known Allergies Allergy Verified 10/12/18 13:46 Home Medications: Ambulatory Orders Aspirin [ASA -] 81 mg PO DAILY 04/21/15 Atorvastatin Ca [Lipitor] 80 mg PO HS 04/21/15 Clopidogrel Bisulfate [Plavix -] 75 mg PO DAILY 04/21/15 Glipizide [Glipizide ER] 5 mg PO BID 04/21/15 Metoprolol Succinate [Toprol XL -] 50 mg PO BID #0 tab.sr.24h 12/03/15 Ranolazine [Ranexa] 500 mg PO BID 06/22/16 Anemia: No Asthma: No Cancer: No Cardiac Disorders: Yes (mo ) CVA: No COPD: No CHF: No Dementia: No Diabetes: Yes Dialysis: Yes GI Disorders: No Disorders: No HTN: Yes Hypercholesterolemia: Yes Liver Disease: No Seizures: No Thyroid Disease: No Other medical history: av fistula left arm - Surgical History Cardiac Surgery: Yes (7STENTs-02/08/14,TRIPLE BYPASS 03/2015) - Immunization History Immunization Up to Date: Yes - Suicide/Smoking/Psychosocial Hx Smoking Status: No Smoking History: Never smoked Have you smoked in the past 12 months: No Number of Cigarettes Smoked Daily: 0 Information on smoking cessation initiated: No Hx Alcohol Use: No Drug/Substance Use Hx: No Substance Use Type: None Hx Substance Use Treatment: No Review of Systems - Review of Systems Able to Perform ROS?: Yes Is the patient limited Singaporean proficient: No Constitutional: Yes: Chills, Fever, Weakness HEENTM: Yes: Symptoms Reported, See HPI, Nose Congestion. No: Eye Pain, Blurred Vision, Tearing, Recent change in vision, Double Vision, Cataracts, Ear Pain, Ocular Prothesis, Ear Discharge, Nose Pain, Tinnitus, Nose Bleeding, Hearing Loss, Throat Pain, Throat Swelling, Mouth Pain, Dental Problems, Difficulty Swallowing, Mouth Swelling, Other Respiratory: Yes: Symptoms reported, See HPI, Cough, Shortness of Breath. No: Orthopnea, SOB with Exertion, SOB at Rest, Stridor, Wheezing, Productive cough, Hemoptysis, Other Cardiac (ROS): No: Symptoms Reported, See HPI, Chest Pain, Edema, Irregular Heart Rate, Lightheadedness, Palpitations, Syncope, Chest Tightness, Other ABD/GI: No: Nausea, Vomiting All Other Systems: Reviewed and Negative *Physical Exam - Vital Signs Last Vital Signs Temp Pulse Resp BP Pulse Ox 98.3 F 83 19 148/81 100 10/12/18 13:43 10/12/18 13:43 10/12/18 13:43 10/12/18 13:43 10/12/18 13:43 - Physical Exam Comments: 10/12/18 14:32 GENERAL: Well developed, well nourished. Awake and alert. No acute distress. HEENT: Normocephalic, atraumatic. PERRLA, EOMI. No conjunctival pallor. Sclera are non-icteric. Moist mucous membranes. Oropharynx is clear. NECK: Supple. Full ROM. CARDIOVASCULAR: Regular rate and rhythm. No murmurs, rubs, or gallops. Distal pulses are 2+ and symmetric. PULMONARY: Mild diffuse wheezing with mild rales. No evidence of respiratory distress. Lungs clear to auscultation bilaterally. No wheezing, rales or rhonchi. ABDOMINAL: Soft. Non-tender. Non-distended. No rebound or guarding. No organomegaly. Normoactive bowel sounds. MUSCULOSKELETAL Normal range of motion at all joints. EXTREMITIES: No cyanosis. No clubbing. No edema. No calf tenderness. SKIN: Warm and dry. Normal capillary refill. NEUROLOGICAL: Alert, awake, appropriate. Gait is normal without ataxia. PSYCHIATRIC: Cooperative. Good eye contact. Appropriate mood General Appearance: Yes: Nourished, Appropriately Dressed. No: Apparent Distress Moderate Sedation - Procedure Monitoring Vital Signs: Procedure Monitoring Vital Signs Temperature 98.3 F 10/12/18 13:43 Pulse Rate 83 10/12/18 13:43 Respiratory Rate 19 10/12/18 13:43 Blood Pressure 148/81 10/12/18 13:43 O2 Sat by Pulse Oximetry (%) 100 10/12/18 13:43 ED Treatment Course - LABORATORY CBC & Chemistry Diagram: 10/12/18 17:25 10/12/18 17:25 Medical Decision Making - Medical Decision Making 10/12/18 14:33 Patient with history of multiple comorbidities presenting with complaint of 2 weeks history of yellow productive cough with intermittent shortness of breath, fever and nasal congestion. Patient seen in urgent care today and chest x-ray shows right sided pneumonia with pleural effusion and was advised to come to the emergency room. Patient present with x-ray report and imaging on CD. CBC, CMP and blood cultures sent. UA urine culture labs ordered. Nebulizer treatment with Atrovent and albuterol ordered. The patient will be admitted for management of pneumonia. 10/12/18 18:09 X-rays brought in by patient from urgent care uploaded to pax which shows right lower lobes infiltrate with right pleural effusion and cardiomegaly. CBC shows no acute pathology. Chemistry shows elevated BUN/CR which is expected given h/o renal failure on dialysis which patient next appointment for dialysis is tomorrow. 10/12/18 18:54 Patient seen by medicine and admitted to [facility] for obs. Patient started on Vanco and Zosyn *DC/Admit/Observation/Transfer Diagnosis at time of Disposition: ESRD (end stage renal disease) on dialysis Pneumonia Qualifiers: Pneumonia type: due to unspecified organism Laterality: right Lung location: unspecified part of lung Qualified Code(s): J18.9 - Pneumonia, unspecified organism CHF (congestive heart failure) Qualifiers: Heart failure type: unspecified Heart failure chronicity: chronic Qualified Code(s): I50.9 - Heart failure, unspecified HTN (hypertension) Qualifiers: Hypertension type: essential hypertension Qualified Code(s): I10 - Essential ( primary) hypertension Diabetes mellitus Qualifiers: Diabetes mellitus type: type 2 Diabetes mellitus assisted insulin use: without assisted use Diabetes mellitus complication status: without complication Qualified Code(s): E11.9 - Type 2 diabetes mellitus without complications - Discharge Dispostion Condition at time of disposition: Stable Decision to Admit order: Yes - Referrals - Patient Instructions - Post Discharge Activity
[2018-10-12] MEDS ORDERED: ALBUTEROL SO4 2.5/IPRATROPIUM 0.5 INH SOL 3 ML VIAL.NEB. NEB ONE ×2 (14:29→15:39)
[2018-10-12 17:51] LABS: EOS % 3.6 % (0-4.5); HEMATOCRIT 31.5 % (35.4-49); HEMOGLOBIN 10.9 GM/dL (11.7-16.9); LYMPH % 19.6 % (8-40); MCH 31.3 pg (25.7-33.7); MCHC 34.4 g/dl (32.0-35.9); MEAN CELL VOLUME 90.9 fl (80-96); MEAN PLT VOLUME 10.5 fl (7.5-11.1); MONO % 10.4 % (3.8-10.2); NEUT % 65.4 % (42.8-82.8); PLATELET COUNT 152 K/MM3 (134-434); RBC 3.47 M/mm3 (4.00-5.60); RDW 14.9 % (11.9-15.9)
[2018-10-12 18:07] LABS: ALBUMIN 3.4 g/dl (3.4-5.0); ALK PHOS 144 U/L (45-117); ANION GAP 10 MMOL/L (8-16); BILIRUBIN,TOTAL 0.4 mg/dL (0.2-1); BLOOD UREA NITROGEN 42 mg/dL (7-18); CALCIUM 8.6 mg/dL (8.5-10.1); CHLORIDE 100 mmol/L (98-107); CO2 25 mmol/L (21-32); CREATININE 6.3 mg/dL (0.55-1.3); GLUCOSE,RANDOM 155 mg/dL (74-106); POTASSIUM 3.6 mmol/L (3.5-5.1); SGOT/AST 26 U/L (15-37); SGPT/ALT 45 U/L (13-61); SODIUM 136 mmol/L (136-145)
[2018-10-12] MEDS ORDERED: VANCOMYCIN 1 GM in D5W (PRE-DOCKED) 1,000 MG/250 ML IVPB ONE (18:51)
[2018-10-12] MEDS ORDERED: PIPERACILLIN/TAZOB 3.375 GM 3.375 GM in DEXTROSE 5%-WATER - 50 ML IVPB ONE (18:51)
[2018-10-12] MEDS ORDERED: PIPERACILLIN/TAZOB 3.375 GM 3.375 GM/50 ML BAG IVPB ONE (18:56)
--- NOTE | 2018-10-12 19:19 | PN ---
Teaching Attending Note Name of Resident: Yanely Morgan ATTENDING PHYSICIAN STATEMENT I saw and evaluated the patient. I reviewed the resident's note and discussed the case with the resident. I agree with the resident's findings and plan as documented. SUBJECTIVE: Seen and examined; please refer to resident note for further historical documentation. Briefly, this is a 48 y/o male with a CC of SOBx 2 weeks worsening. Fevers up to 103 at home. Malaise. Productive cough. UC in the AM. Treated with zithromax at the begininning of the month from PCP. Endorses chills but no fever. No CP, syncope, etc. No WBC, no fever. Admission requested for pneumonia. Was seen at then brought here. 10 sys ROS done and negative aside from HPI PMH (D-CHF, HLD, IDDM, ESRD on HD (MWF, Dr. Zuniga, E AVF), CAD s/p CABG/ PCIx7), PSH, Family hx, Social hx reviewed Medication list reviewed OBJECTIVE: VS, labs, imaging reviewed NAD, AAO, Resting comfortably in bed NC AT EOMI PERRLA RRR s1/2 no mgr Lungs mostly clear (mild crackles near L-base?), w/ sym exp NT ND +BS CN2-12 wnl, no fnd Normal mood, appropriate affect Repeating imaging here Labs reviewed; no leukocytosis, BUN/Cr elevated stereotypically ASSESSMENT AND PLAN: Patient presents from for suspected pneumonia 1) Suspected Pneumonia -No WBC, no fever; CT pending (want to better describe RLL changes). Benign exam satting 100% on RA. He has a chronically elevated BUN; no other parts of CURB-65 elevated. He is Risk Class II with his PORT/PSI score. Likely can be converted to PO abx in the next 24 hours and monitored. -CAP empiric tx; checking EKG to assess the QTc. -Followup urine studies, influenza, sputum cx. -Can consider CT Chest if further imaging required 2) ESRD on HD -Consulting nephrology for HD; monitor BMP 3) D-CHF -Doesn't appear to be a demetris exacerbation -Monitor 4) IDDM -SSI; confirm if basal coverage then continue 5) HTN -Verify and continue home meds 6) HLD -Verify and continue home meds 7) CAD s/p CABG/PCI -Continue home meds; no typical/atypical cardiac symptoms FENA -PO -PRN replete -Renal diet -As tolerated Full Code
--- NOTE | 2018-10-12 19:33 | HP ---
<Yanely Morgan - Last Filed: 10/13/18 09:49> CHIEF COMPLAINT: SOB x 2 weeks PCP: Dr. Drake HISTORY OF PRESENT ILLNESS: 48 y/o M with PMH diastolic CHF, HLD, IDDM, ESRD (on dialysis M,W, F. Has L AVF) , hx past CABG 2014, cath 2014, 2015, hx 7 stents, who presents to the ED c/o gradually worsening SOB over the past two weeks. As per pt, he developed SOB over the past two weeks and it has been gradually worsening. States that it has been a/w productive cough with clear sputum, without blood. Also endorses fever up to 103.5F which occurred last week, however has been afebrile since. During this time, also endorses chills. Otherwise, without chest pain, pressure, N/V, or changes in urinary or bowel function. Has had recurrent episodes of PNA recently. States his last episodes were at the end of August and beginning of September. Was tx with azithromycin 500mg for 5 days for each of the episodes. Compliant with meds, and last dialysis session was yesterday. Nephro is Dr. Drake. 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 Smoking: denies Alcohol: denies Drugs: denies Family History: mother - HTN Allergies No Known Allergies Allergy (Verified 10/12/18 13:46) HOME MEDICATIONS: Home Medications Medication Instructions Recorded Aspirin [ASA -] 81 mg PO DAILY 04/21/15 Atorvastatin Ca [Lipitor] 80 mg PO HS 04/21/15 Clopidogrel Bisulfate [Plavix -] 75 mg PO DAILY 04/21/15 Glipizide [Glipizide ER] 5 mg PO BID 04/21/15 Metoprolol Succinate [Toprol XL -] 50 mg PO BID #0 tab.sr.24h 12/03/15 Ranolazine [Ranexa] 500 mg PO BID 06/22/16 meds have been confirmed with patient verbally REVIEW OF SYSTEMS CONSTITUTIONAL: Absent: fever, chills, diaphoresis, generalized weakness, malaise, loss of appetite, weight change HEENT: Absent: rhinorrhea, nasal congestion, throat pain, throat swelling, difficulty swallowing, mouth swelling, ear pain, eye pain, visual changes CARDIOVASCULAR: Absent: chest pain, syncope, palpitations, irregular heart rate, lightheadedness , peripheral edema RESPIRATORY: +cough, SOB Absent: dyspnea with exertion, orthopnea, wheezing, stridor, hemoptysis GASTROINTESTINAL: Absent: abdominal pain, abdominal distension, nausea, vomiting, diarrhea, constipation, melena, hematochezia GENITOURINARY: Absent: dysuria, frequency, urgency, hesitancy, hematuria, flank pain, genital pain MUSCULOSKELETAL: Absent: myalgia, arthralgia, joint swelling, back pain, neck pain SKIN: Absent: rash, itching, pallor HEMATOLOGIC/IMMUNOLOGIC: Absent: easy bleeding, easy bruising, lymphadenopathy, frequent infections ENDOCRINE: Absent: unexplained weight gain, unexplained weight loss, heat intolerance, cold intolerance NEUROLOGIC: Absent: headache, focal weakness or paresthesias, dizziness, unsteady gait, seizure, mental status changes, bladder or bowel incontinence PSYCHIATRIC: Absent: anxiety, depression, suicidal or homicidal ideation, hallucinations. PHYSICAL EXAMINATION Vital Signs - 24 hr 10/12/18 13:43 Temperature 98.3 F Pulse Rate 83 Respiratory 19 Rate Blood Pressure 148/81 O2 Sat by Pulse 100 Oximetry (%) GENERAL: Pleasant. comfortable. Awake, alert, and fully oriented, in no acute distress. HEAD: Normal with no signs of trauma. EYES: Pupils equal, round and reactive to light, extraocular movements intact, sclera anicteric, conjunctiva clear. EARS, NOSE, THROAT: Ears normal, nares patent, oropharynx clear without exudates. Moist mucous membranes. NECK: Normal range of motion, supple LUNGS: +R crackles, wheezing. HEART: Regular rate and rhythm, normal S1 and S2 without murmur, rub or gallop. ABDOMEN: Soft, nontender, not distended, normoactive bowel sounds, no guarding, no rebound, no masses. LOWER EXTREMITIES: 2+ pt pulses, warm, well-perfused. No calf tenderness. No peripheral edema. NEUROLOGICAL: Cranial nerves II-XII intact. 5/5 motor strength UE, LE. sensation intact. PSYCHIATRIC: Cooperative. SKIN: Warm, dry Laboratory Results 10/12/18 10/12/18 10/12/18 17:25 17:25 18:30 WBC 6.0 RBC 3.47 L Hgb 10.9 L Hct 31.5 L MCV 90.9 MCH 31.3 MCHC 34.4 RDW 14.9 Plt Count 152 D MPV 10.5 D Absolute Neuts (auto) 3.9 Neutrophils % 65.4 Lymphocytes % 19.6 Monocytes % 10.4 H Eosinophils % 3.6 Basophils % 1.0 Nucleated RBC % 0 Sodium 136 Potassium 3.6 Chloride 100 Carbon Dioxide 25 Anion Gap 10 BUN 42 H Creatinine 6.3 H Creat Clearance w eGFR 9.58 Random Glucose 155 H Lactic Acid 1.2 Calcium 8.6 Total Bilirubin 0.4 AST 26 ALT 45 Alkaline Phosphatase 144 H Total Protein 7.0 Albumin 3.4 EKG: requested, pending CXR: +with R sided effusion, ?infiltrate. f/u official read ASSESSMENT/PLAN: 48 y/o M with PMH diastolic CHF, HLD, IDDM, ESRD (on dialysis M,W, F. Has L AVF) , hx past CABG 2014, cath 2014, 2015, hx 7 stents, who presents to the ED c/o gradually worsening SOB over the past two weeks. #R/o PNA, with R effusion -currently without white count, afebrile, sat 100% -CURB 65 = 0; as elevation in BUN is chronic -s/p vanc+zosyn in ED. will c/w CAP coverage: rocephin 1g IVPB qd, zithro 500mg IVPB qd starting tomorrow as currently covered now. f/u EKG qtc -f/u CT chest w/o contrast to characterize infiltrate, effusion -for dialysis tomorrow. will see if improves fluid accum -f/u blood cx, sputum, legionella, resp panel #ESRD (M, W, F) with L AVF -will be dialyzed tomorrow -nephro consult: Dr. Drake #diastolic CHF -ECHO 2016: EF 44.8% -may have contributed fluid collection #CAD hx past CABG w/stents -c/w asa, plavix, ranexa #HTN-currently uncontrolled -likely 2/2 discomfort -c/w toprol #HLD -c/w lipitor #IDDM -ISS, BGM ACHS #F/E/N no IVF indicated at this time continue to follow lytes na controlled/ cholesterol controlled #PPX DVT: SCD's, expect short stay #Dispo med-surg obs may be able to change to PO abx tomorrow if continues to improve Visit type - Emergency Visit Emergency Visit: Yes ED Registration Date: 10/12/18 Care time: The patient presented to the Emergency Department on the above date and was hospitalized for further evaluation of their emergent condition. - New Patient This patient is new to me today: Yes Date on this admission: 10/12/18 - Critical Care Critical Care patient: No <Jr Bergeron - Last Filed: 11/13/18 21:45> Seen and examined; agree with above aside from what is supplemented in my own documentation. Repeated all walters parts of exam, supervised all vital parts of patient care.
[2018-10-12] MEDS ORDERED: VANCOMYCIN 1 GRAM (PRE-DOCKED) 1,000 MG/250 ML BAG IVPB ONE (19:42)
[2018-10-12] MEDS: RANOLAZINE E.R. 500 MG TABLET (FP) PO SCH (22:31)
[2018-10-12] MEDS: INSULIN SLIDING SCALE (NOVOLOG) 1 VIAL SQ SCH (22:32)
[2018-10-12] MEDS: ATORVASTATIN CA 80 MG TABLET (FP) PO SCH (22:32)
[2018-10-12 22:45] VITALS: BMI 28.0
[2018-10-13] MEDS: INSULIN SLIDING SCALE (NOVOLOG) 1 VIAL SQ SCH ×4 (06:02→21:25)
[2018-10-13 06:24] LABS: BASO % 0.8 % (0-2.0); EOS % 3.5 % (0-4.5); HEMATOCRIT 31.3 % (35.4-49); HEMOGLOBIN 10.6 GM/dL (11.7-16.9); LYMPH % 15.2 % (8-40); MCH 30.7 pg (25.7-33.7); MCHC 33.7 g/dl (32.0-35.9); MEAN CELL VOLUME 91.1 fl (80-96); MEAN PLT VOLUME 10.1 fl (7.5-11.1); MONO % 12.3 % (3.8-10.2); NEUT % 68.2 % (42.8-82.8); PLATELET COUNT 150 K/MM3 (134-434); RBC 3.44 M/mm3 (4.00-5.60); RDW 15.1 % (11.9-15.9)
[2018-10-13 06:36] LABS: ANION GAP 11 MMOL/L (8-16); BLOOD UREA NITROGEN 55 mg/dL (7-18); CALCIUM 8.6 mg/dL (8.5-10.1); CHLORIDE 98 mmol/L (98-107); CO2 24 mmol/L (21-32); CREATININE 7.2 mg/dL (0.55-1.3); GLUCOSE,RANDOM 121 mg/dL (74-106); MAGNESIUM 2.1 mg/dL (1.8-2.4); PHOSPHOROUS 5.6 mg/dL (2.5-4.9); POTASSIUM 3.7 mmol/L (3.5-5.1); SODIUM 134 mmol/L (136-145)
[2018-10-13] MEDS ORDERED: DEXTROSE 5%-WATER - 50 ML IVPB ONE (09:27)
[2018-10-13] MEDS ORDERED: cefTRIAXone SODIUM 1 GM VIAL ONE (09:27)
[2018-10-13] MEDS: CEFTRIAXONE 1 GM in DEXTROSE 5%-WATER - 50 ML IVPB SCH (09:58)
[2018-10-13] MEDS: RANOLAZINE E.R. 500 MG TABLET (FP) PO SCH ×2 (09:58→21:24)
[2018-10-13] MEDS: ASPIRIN 81 MG CHEWABLE TABLETS PO SCH (09:58)
[2018-10-13] MEDS: CLOPIDOGREL BISULFATE 75 MG TABLET (FP) PO SCH (10:00)
[2018-10-13] MEDS ORDERED: AZITHROMYCIN IVPB 500 MG/250 ML BAG IVPB SCH (10:00)
[2018-10-13] MEDS ORDERED: HEPARIN NA (PORCINE) 5,000 UNITS/ML 1ML VIAL IVPUSH ONE (10:56)
[2018-10-13] MEDS ORDERED: SODIUM CHLORIDE 250 ML IV PRN (10:56)
[2018-10-13] MEDS ORDERED: BENZOCAINE/MENTH/CETYLPYRD CL 1 EACH LOZENGE MM PRN (11:03)
[2018-10-13] MEDS ORDERED: ALBUTEROL SO4 0.083% IH SOL 2.5 MG/3 ML VIAL.NEB. NEB PRN (11:03)
--- NOTE | 2018-10-13 11:15 | PN ---
Physical Exam: SUBJECTIVE: Patient seen and examined at bedside. Denies chest pain or shortness of breath. OBJECTIVE: Vital Signs Period Temp Pulse Resp BP Sys/Link Pulse Ox Last 24 Hr 98.1 F-99.1 F 74-86 17-20 138-158/78-95 100-100 GENERAL: AAOx3 NAD HEAD: Atrumatic/ Normocephalic EYES: EOMI Sclera Clear ENT: MMM NECK: Trachea midline, full range of motion, supple. LUNGS: CTAB HEART: Murmur most likely 2/2 radiation from AVF. ABDOMEN: Tender to deep palpation costophrenic area EXTREMITIES: Trace edema. AVFm left extremity, bruit auscultated NEUROLOGICAL: Cranial nerves II through XII grossly intact. PSYCH: Normal mood, normal affect. Laboratory Results - last 24 hr 10/12/18 10/12/18 10/12/18 17:25 17:25 18:30 WBC 6.0 RBC 3.47 L Hgb 10.9 L Hct 31.5 L MCV 90.9 MCH 31.3 MCHC 34.4 RDW 14.9 Plt Count 152 D MPV 10.5 D Absolute Neuts (auto) 3.9 Neutrophils % 65.4 Lymphocytes % 19.6 Monocytes % 10.4 H Eosinophils % 3.6 Basophils % 1.0 Nucleated RBC % 0 Sodium 136 Potassium 3.6 Chloride 100 Carbon Dioxide 25 Anion Gap 10 BUN 42 H Creatinine 6.3 H Creat Clearance w eGFR 9.58 POC Glucometer Random Glucose 155 H Lactic Acid 1.2 Calcium 8.6 Phosphorus Magnesium Total Bilirubin 0.4 AST 26 ALT 45 Alkaline Phosphatase 144 H Total Protein 7.0 Albumin 3.4 Influenza A (Rapid) Influenza B (Rapid) 10/12/18 10/13/18 10/13/18 22:31 05:46 06:00 WBC 6.0 RBC 3.44 L Hgb 10.6 L Hct 31.3 L MCV 91.1 MCH 30.7 MCHC 33.7 RDW 15.1 Plt Count 150 MPV 10.1 Absolute Neuts (auto) 4.1 Neutrophils % 68.2 Lymphocytes % 15.2 D Monocytes % 12.3 H Eosinophils % 3.5 Basophils % 0.8 Nucleated RBC % 0 Sodium Potassium Chloride Carbon Dioxide Anion Gap BUN Creatinine Creat Clearance w eGFR POC Glucometer 114 116 Random Glucose Lactic Acid Calcium Phosphorus Magnesium Total Bilirubin AST ALT Alkaline Phosphatase Total Protein Albumin Influenza A (Rapid) Influenza B (Rapid) 10/13/18 10/13/18 06:00 Unknown WBC RBC Hgb Hct MCV MCH MCHC RDW Plt Count MPV Absolute Neuts (auto) Neutrophils % Lymphocytes % Monocytes % Eosinophils % Basophils % Nucleated RBC % Sodium 134 L Potassium 3.7 Chloride 98 Carbon Dioxide 24 Anion Gap 11 BUN 55 H Creatinine 7.2 H Creat Clearance w eGFR 8.21 POC Glucometer Random Glucose 121 H Lactic Acid Calcium 8.6 Phosphorus 5.6 H Magnesium 2.1 Total Bilirubin AST ALT Alkaline Phosphatase Total Protein Albumin Influenza A (Rapid) Negative Influenza B (Rapid) Negative Active Medications Generic Name Dose Route Start Last Admin Trade Name Freq PRN Reason Stop Dose Admin Albuterol Sulfate 1 amp 10/13/18 11:03 Ventolin 0.083% Nebulizer Soln - NEB Q4H PRN SHORT OF BREATH/WHEEZING Aspirin 81 mg 10/13/18 10:00 10/13/18 09:58 Asa - PO 81 mg DAILY MARTHA Administration Atorvastatin Calcium 80 mg 10/12/18 22:00 10/12/18 22:32 Lipitor - PO 80 mg HS MARTHA Administration Benzocaine/Menthol 1 each 10/13/18 11:03 Cepacol Lozenge - MM PRN PRN SORE THROAT Clopidogrel Bisulfate 75 mg 10/13/18 10:00 10/13/18 10:00 Plavix - PO 75 mg DAILY MARTHA Administration Heparin Sodium (Porcine) 500 unit 10/13/18 10:56 Heparin - IVPUSH 10/13/18 10:57 ONCE ONE Heparin Sodium (Porcine) 300 unit 10/13/18 11:00 Heparin - IVPUSH 10/13/18 13:01 Q1H MARTHA Ceftriaxone Sodium 1 gm/ 50 mls @ 100 mls/hr 10/13/18 10:00 10/13/18 09:58 Dextrose IVPB 100 mls/hr DAILY MARTHA Administration Azithromycin 500 mg in 250 mls @ 250 mls/hr 10/13/18 10:00 10/13/18 10:00 Zithromax 500mg Ivpb (Pre-Docked) IVPB 250 mls/hr DAILY MARTHA Administration Sodium Chloride 250 mls @ 3,000 mls/hr 10/13/18 10:56 Normal Saline - IV 10/14/18 10:56 PRN PRN Hypotension during Dialysis Insulin Aspart 1 vial 10/12/18 22:00 10/13/18 06:02 Novolog Vial Sliding Scale - SQ Not Given ACHS [facility] Protocol Metoprolol Succinate 50 mg 10/12/18 22:00 10/13/18 09:58 Toprol Xl - PO 50 mg BID MARTHA Administration Ranolazine 500 mg 10/12/18 22:00 10/13/18 09:58 Ranexa - PO 500 mg BID MARTHA Administration ASSESSMENT/PLAN: 48 y/o M with PMH diastolic CHF, HLD, IDDM, ESRD (on dialysis M,W, F. Has L AVF) , hx past CABG 2014, cath 2014, 2015, hx 7 stents, who presents to the ED c/o gradually worsening SOB over the past two weeks. #R/o PNA, with R effusion -currently without white count, afebrile, sat 100% -CURB 65 = 0; as elevation in BUN is chronic -s/p vanc+zosyn in ED. will c/w CAP coverage: Rocephin 1g IVPB qd, Azithro D/C' ed - CT chest w/o contrast---> Small to moderate Right pleural effusion with lower lobe atelectasis -dialysed today 10/13/18 -blood cx Negative, sputum, urine legionella and strep pneumo both negative #ESRD (M, W, F) with L AVF -Dialyzed today -Dr Gomez on board #diastolic CHF -ECHO 2015: EF 44.8% -may have contributed fluid collection #CAD hx past CABG w/stents -asa, plavix, ranexa, metoprolol #HTN-currently uncontrolled -c/w toprol #HLD -c/w lipitor #IDDM -ISS, BGM ACHS #FEN No IVFs Monitor Electrolytes na controlled/ cholesterol controlled #PPX DVT: SCDs #Dispo med-surg Visit type - Emergency Visit Emergency Visit: Yes ED Registration Date: 10/12/18 Care time: The patient presented to the Emergency Department on the above date and was hospitalized for further evaluation of their emergent condition. - New Patient This patient is new to me today: Yes Date on this admission: 10/13/18 - Critical Care Critical Care patient: No - Discharge Referral Referred to [facility] Med P.C.: No
--- NOTE | 2018-10-13 11:51 | CONSULT ---
Consult - text type - Consultation Consultation Note: Renal Consult for ESRD on HD This is a 48 year old gentleman with hx of ESRD on HD (MWF), DM, CHF, Hyperlipidemia, CAD s/p CABG who presented with complaints of SOB. Pt seen and examined at the bedside. Continues to have cough and mild sob. No fever at this time. No N/V/D. No LE edema. Does have orthopnea. No NICOLE. No GREENE, CP, palpitations, abd pain. Last dialysis was Tuesday. Was told by [facility] urgent care that he has a PNA. PMHx: as above Allergies: NKDA Family Hx: NC Social hx: No T/A/D ROS: as per HPI, all other ROS negative Home Medications Medication Instructions Recorded Aspirin [ASA -] 81 mg PO DAILY 04/21/15 Atorvastatin Ca [Lipitor] 80 mg PO HS 04/21/15 Clopidogrel Bisulfate [Plavix -] 75 mg PO DAILY 04/21/15 Glipizide [Glipizide ER] 5 mg PO BID 04/21/15 Metoprolol Succinate [Toprol XL -] 50 mg PO BID #0 tab.sr.24h 12/03/15 Ranolazine [Ranexa] 500 mg PO BID 06/22/16 Vital Signs Temperature 98.4 F 10/13/18 06:00 Pulse Rate 74 10/13/18 06:00 Respiratory Rate 20 10/13/18 06:00 Blood Pressure 138/79 10/13/18 06:00 O2 Sat by Pulse Oximetry (%) 100 10/13/18 04:18 Intake & Output 10/10/18 10/11/18 10/12/18 10/13/18 23:59 23:59 23:59 23:59 Intake Total 490 Balance 490 Weight 83.716 kg NAD awake and alert neck supple, no JVD RRR, no M/R Dec BS, no rales, wheeze soft NT/ND, no rebound or guarding no LE edema, clubbing or cyanosis CBC, BMP 10/13/18 06:00 10/13/18 06:00 Laboratory Tests 10/13/18 10/13/18 06:00 06:00 MCV 91.1 Calcium 8.6 Phosphorus 5.6 H Magnesium 2.1 Current Medications Albuterol Sulfate (Ventolin 0.083% Nebulizer Soln -) 1 amp NEB Q4H PRN PRN Reason: SHORT OF BREATH/WHEEZING Last Admin: 10/13/18 11:22 Dose: 1 amp Aspirin (Asa -) 81 mg PO DAILY [facility] Last Admin: 10/13/18 09:58 Dose: 81 mg Atorvastatin Calcium (Lipitor -) 80 mg PO HS [facility] Last Admin: 10/12/18 22:32 Dose: 80 mg Benzocaine/Menthol (Cepacol Lozenge -) 1 each MM PRN PRN PRN Reason: SORE THROAT Clopidogrel Bisulfate (Plavix -) 75 mg PO DAILY [facility] Last Admin: 10/13/18 10:00 Dose: 75 mg Heparin Sodium (Porcine) (Heparin -) 500 unit IVPUSH ONCE ONE Stop: 10/13/18 10:57 Heparin Sodium (Porcine) (Heparin -) 300 unit IVPUSH Q1H [facility] Stop: 10/13/18 13:01 Ceftriaxone Sodium 1 gm/ (Dextrose) 50 mls @ 100 mls/hr IVPB DAILY [facility] Last Admin: 10/13/18 09:58 Dose: 100 mls/hr Azithromycin (Zithromax 500mg Ivpb (Pre-Docked)) 500 mg in 250 mls @ 250 mls/ hr IVPB DAILY [facility] Last Admin: 10/13/18 10:00 Dose: 250 mls/hr Sodium Chloride (Normal Saline -) 250 mls @ 3,000 mls/hr IV PRN PRN PRN Reason: Hypotension during Dialysis Stop: 10/14/18 10:56 Insulin Aspart (Novolog Vial Sliding Scale -) 1 vial SQ ACHS [facility]; Protocol Last Admin: 10/13/18 06:02 Dose: Not Given Metoprolol Succinate (Toprol Xl -) 50 mg PO BID [facility] Last Admin: 10/13/18 09:58 Dose: 50 mg Ranolazine (Ranexa -) 500 mg PO BID [facility] Last Admin: 10/13/18 09:58 Dose: 500 mg 48 year old gentleman with hx of ESRD on HD (MWF), DM, CHF, Hyperlipidemia, CAD s/p CABG who presented with complaints of SOB. #Shortness of breath r/o PNA vs. CHF #CAD/CHF #Pleural effusions #ESRD on HD #DM #Hyperlipidemia Continue empiric abx and follow up cultures CT Lung w/o evidence of PNA so ? CHF vs. Bronchitis given pt has pleural effusions will be aggressive with UF will consult Cardiology given CAD/CHF history continue insulin sliding scale Renal/diabetic diet Fluid restriction of 1.2L daily continue statin Thank you Will follow Miles Gomez DO
--- NOTE | 2018-10-13 14:15 | CON.CARD ---
Cardiology Consult (text) - Consultation Consultation Note: cc: sob hpi: 48 yr old male with syst chf, CAD--s/p 3v CABG 03/2015, HTN, HPL, DM, ESRD on HD here with sob. In 01/2014 w ACS, seen by CTS and consideration of CABG-- declined and opted for multivessel PCI. Failed multiple PCI with rapid ISR since 2013 , therefore ultimately patient agreed and went for CABG in 03/2015. In 11/2015 developed chf and hospitalized, found to have newly reduced lvef and sent for cath showing patent ramirez but occluded sp and stenosed svg, left for medical management. Had repeat cath 01/2018 for persistent angina, similar findings as 2016 cath, left for med rx. Past 2 wks with sob/marcus/cough. Took abx as outpt and initially felt better but then sxs returned. No cp, palps dizzy loc pnd orthopnea le edema. Now treating for pna. Sees me for cardio. pmh: per hpi psh: cabg social: no tob fam: no premature cad, scd ros: per hpi; no fever, nvd, gib hematuria; all others normal meds: Home Medications Medication Instructions Recorded Aspirin [ASA -] 81 mg PO DAILY 04/21/15 Atorvastatin Ca [Lipitor] 80 mg PO HS 04/21/15 Clopidogrel Bisulfate [Plavix -] 75 mg PO DAILY 04/21/15 Glipizide [Glipizide ER] 5 mg PO BID 04/21/15 Metoprolol Succinate [Toprol XL -] 50 mg PO BID #0 tab.sr.24h 12/03/15 Ranolazine [Ranexa] 500 mg PO BID 06/22/16 pe: Vital Signs Period Temp Pulse Resp BP Sys/Link Pulse Ox Last 24 Hr 98.1 F-99.1 F 74-86 17-20 138-158/78-95 100-100 nad no jvd rrr s1s2 no mrg cta bl nl eff aao3 no le e/c/c abd nt nd pos bs no jaundice diaphoresis pos dp pt Laboratory Last Values WBC 6.0 K/mm3 (4.0-10.0) 10/13/18 06:00 RBC 3.44 M/mm3 (4.00-5.60) L 10/13/18 06:00 Hgb 10.6 GM/dL (11.7-16.9) L 10/13/18 06:00 Hct 31.3 % (35.4-49) L 10/13/18 06:00 MCV 91.1 fl (80-96) 10/13/18 06:00 MCH 30.7 pg (25.7-33.7) 10/13/18 06:00 MCHC 33.7 g/dl (32.0-35.9) 10/13/18 06:00 RDW 15.1 % (11.9-15.9) 10/13/18 06:00 Plt Count 150 K/MM3 (134-434) 10/13/18 06:00 MPV 10.1 fl (7.5-11.1) 10/13/18 06:00 Absolute Neuts (auto) 4.1 K/mm3 (1.5-8.0) 10/13/18 06:00 Neutrophils % 68.2 % (42.8-82.8) 10/13/18 06:00 Lymphocytes % 15.2 % (8-40) D 10/13/18 06:00 Monocytes % 12.3 % (3.8-10.2) H 10/13/18 06:00 Eosinophils % 3.5 % (0-4.5) 10/13/18 06:00 Basophils % 0.8 % (0-2.0) 10/13/18 06:00 Nucleated RBC % 0 % (0-0) 10/13/18 06:00 Sodium 134 mmol/L (136-145) L 10/13/18 06:00 Potassium 3.7 mmol/L (3.5-5.1) 10/13/18 06:00 Chloride 98 mmol/L (98-107) 10/13/18 06:00 Carbon Dioxide 24 mmol/L (21-32) 10/13/18 06:00 Anion Gap 11 MMOL/L (8-16) 10/13/18 06:00 BUN 55 mg/dL (7-18) H 10/13/18 06:00 Creatinine 7.2 mg/dL (0.55-1.3) H 10/13/18 06:00 Creat Clearance w eGFR 8.21 (>60) 10/13/18 06:00 POC Glucometer 174 UNITS (80-120) 10/13/18 12:10 Random Glucose 121 mg/dL (74-106) H 10/13/18 06:00 Lactic Acid 1.2 mmol/L (0.4-2.0) 10/12/18 18:30 Calcium 8.6 mg/dL (8.5-10.1) 10/13/18 06:00 Phosphorus 5.6 mg/dL (2.5-4.9) H 10/13/18 06:00 Magnesium 2.1 mg/dL (1.8-2.4) 10/13/18 06:00 Total Bilirubin 0.4 mg/dL (0.2-1) 10/12/18 17:25 AST 26 U/L (15-37) 10/12/18 17:25 ALT 45 U/L (13-61) 10/12/18 17:25 Alkaline Phosphatase 144 U/L (45-117) H 10/12/18 17:25 Total Protein 7.0 g/dl (6.4-8.2) 10/12/18 17:25 Albumin 3.4 g/dl (3.4-5.0) 10/12/18 17:25 Influenza A (Rapid) Negative 10/13/18 Unknown Influenza B (Rapid) Negative 10/13/18 Unknown echo 02/2017: global hk, nl lv size, lvef 40-45%, nl rv, mild tr, mild pr, mild lae echo 05/2016: nl lv size, mild-mod dec lvef, global HK, g2dd, nl rv, mild lae, mild mr, mild tr, trace AR, mod phtn, mild dil ivc echo 11/2015: mild lve, mild-mod dec lvef, global HK, nl rv, mild lae, mild-mod mr, mod tr, rvsp 40-50, mild ar, mod pr Echo 01/2014: normal LV/RV function, mild LVH, no sig valv abn Stress MPI 01/2014: sub-max HR (70%); 6 mins 30 secs, + chest pain, + ST depression , large felicia-apical and moderate apical inferior ischemia and TID mibi 02/2017: large ant/antlat/lat/inflat/inf scar apex to base, minimal periinfarct apical ischemia, lvef 28% cath 11/2015: patent ramirez to lad, occluded sp to om1, stenosed svg to rpda, isr lad and om stents, no interventions done cath 01/2018: same as above cath Cath 03/2015: prox LAD-- new 70-80% disease just proximal to prior patent stent , D1/D2 severe disease, distal LCX--TO, OM1 90-95% ISR, mid/distal RCA 70-80%, RPDA 80-90%, RPL TO Cath/PCI 09/2014 : severe diffuse ISR of bifurcation distal LCx/ OM1 HALLIE stent (V stenting), prox LAD-- new moderate disease just proximal to prior patent stent, residual diffuse RCA disease--medical rx. New HALLIE to OM1 done, distal LCx is now jailed and TO Cath/PCI 05/2014 : severe diffuse ISR of bifurcation distal LCx/ OM1 HALLIE stent ( V stenting)--both CBPTCA ed, prox LAD stent patent, residual diffuse RCA disease --medical rx. Cath/PCI 05/2014: CBPTCA of severe diffuse ISR of bifurcation distal LCx/ OM1 HALLIE stent (V stenting), prox LAD stent patent, residual diffuse RCA disease-- medical rx. Cath/PCI 02/2014: bifurcation distal LCx/ OM1 HALLIE stent (V stenting), residual diffuse RCA disease--medical rx. Cath /PCI 01/2014: prox LAD HALLIE PCI, D1 PTCA, D2 TO, OM1 and distal LCx severe disease (mod sized distal vessels), RPDA--severe diffuse disease, RPL TO (chanel by LCx) carotids 02/2017: mild dz, no sig stenosis holter 08/2017: benign study, pt had palps with NSR ecg: sr, nl intervals, inf/lat twis, no sig change priors ct chest: small-mod right eff a/p: 48 yr old male with syst chf, CAD--s/p 3v CABG 03/2015, pci's, HTN, HPL, DM , ESRD on HD here with sob. sob: -no signs acs -ct chest has small-mod right pleural eff, so possible cause of sob, continued vol removal with HD per renal -also has sxs suggestive of pna, cont abx per pmd CAD s/p PCI and CABG X 3 (RAMIREZ to LAD, SP to OM and SVG to RPDA 03/2015): -Stable. No signs acs. -11/2015 had new onset chf prompted repeat cath showing failure of sp and svg grafts, ramirez still patent. No further revascularization was attempted due to extensive dz and his hx of recurrent ISR. -had repeat cath 01/2018 for persistent cp, similar results to prior cath, no interventions done, rec'd med rx. -cont current dapt, statin, bb, ester, ranexa. HTN: -cont bb, ester HPL: -cont statin ESRD on HD: -Continued hd per renal chronic syst chf: -Recent echo showing reduced lvef, likely related to graft closure. -Cont current chf meds (bb/ester) -cont vol removal with hd per renal.
--- NOTE | 2018-10-13 15:32 | PN ---
Teaching Attending Note Name of Resident: Travis Simon ATTENDING PHYSICIAN STATEMENT I saw and evaluated the patient. I reviewed the resident's note and discussed the case with the resident. I agree with the resident's findings and plan as documented. SUBJECTIVE: No fever or chills. feels SOB . reports fever of 103 as outpt , last one was 1 week ago. reports being diagnosed with PNA end of band beginning of September and was treated with azithro x 2 . reports never to be told he had effusions OBJECTIVE: NAD Cv: RRR, no JVd, no MRG Lungs: slight decreased breath sounds at L base Ext : 1+ edema ASSESSMENT AND PLAN: 48 y/o man with h/o CAD, s/p CABG x 3, chronic Systolic heart failure, ESRD on HD MWF, HLP, HTN, DM and other medical problems who presented with SOB and fever. he was found to have R pleural effusion 1- SOB: could be due to the pleural effusion and possible CHF exacerbation. last fever was last tuesday, so pneumonia now is less likely but still possible. flu swab neg . I don't think pleural effusion is infected . - cont with ceftriaxone. legionella neg - pulmonary consult to comment on pleural effusion , manage with HD or need to drain ? - appreciate card input 2- ESRD : HD MWF 3- DM : SSI 4- HTN, CAD: cont ASa, plavix, BB , ACEI , and ranexa Dispo: awaiting cx and pulm eval . possible dc tomorrow
[2018-10-13 15:41] LABS: HEMATOCRIT 32.7 % (35.4-49); HEMOGLOBIN 11.1 GM/dL (11.7-16.9); MCH 31.3 pg (25.7-33.7); MCHC 34.1 g/dl (32.0-35.9); MEAN PLT VOLUME 10.4 fl (7.5-11.1); PLATELET COUNT 192 K/MM3 (134-434); RBC 3.56 M/mm3 (4.00-5.60); WHITE BLOOD COUNT 7.5 K/mm3 (4.0-10.0)
[2018-10-13] MEDS: HEPARIN NA (PORCINE) 5,000 UNITS/ML 1ML VIAL IVPUSH SCH ×2 (16:20→16:47)
[2018-10-13 16:41] LABS: ANION GAP 10 MMOL/L (8-16); BLOOD UREA NITROGEN 57 mg/dL (7-18); CHLORIDE 98 mmol/L (98-107); CO2 26 mmol/L (21-32); GLUCOSE,RANDOM 71 mg/dL (74-106); PHOSPHOROUS 5.5 mg/dL (2.5-4.9); SODIUM 134 mmol/L (136-145)
[2018-10-13 16:51] LABS: CREATININE 7.8 mg/dL (0.55-1.3)
--- NOTE | 2018-10-13 16:51 | CON.PULM ---
Consult Consult Specialty:: PULMONARY Referred by:: DARYA Reason for Consultation:: SOB/FEVER - History of Present Illness Chief Complaint: sob/cough/fever History of Present Illness: Patient with history of congestive heart failure, hyperlipidemia, known insulin- dependent diabetes, renal failure and cardiac bypass went to urgent care for admission for pneumonia. Patient reported 2 weeks history of yellow productive cough with fevers, nasal congestion, shortness of breath and intermittent wheezing with malaise. Patient was seen with urgent care which x-ray shows right-sided pleural effusion with right infiltrate. Patient present with x-ray imaging and reported reading pneumonia. Patient called nephrology who advised him to come in for IV antibiotics for pneumonia. Patient reported last fever 6 days ago 103F. Patient denies any other symptoms at this time. We have been asked to eval right pleural effusion. - Past Medical History MEDICAL FIELD REPRESENTATIVE: No: Alzheimer's Cardio/Vascular: Yes: CAD, CHF, HTN, Hyperlipdemia. No: AFIB Pulmonary: Yes: Other (pleural effusion) Gastrointestinal: No: Ascites Renal/: Yes: Renal Failure Heme/Onc: Yes: Anemia Endocrine: Yes: Diabetes Mellitus - Past Surgical History Past Surgical History: Yes: CABG (04/09/15 at [facility]), Stent (7 cardiac stents) - Alcohol/Substance Use Hx Alcohol Use: No History of Substance Use: reports: None - Smoking History Smoking history: Never smoked Have you smoked in the past 12 months: No Aproximately how many cigarettes per day: 0 - Social History Usual Living Arrangement: Alone ADL: Independent Occupation: works in a fpc Place of : [facility] History of Recent Travel: No Home Medications - Allergies Allergies/Adverse Reactions: Allergies Allergy/AdvReac Type Severity Reaction Status Date / Time No Known Allergies Allergy Verified 10/12/18 13:46 - Home Medications Home Medications: Ambulatory Orders Aspirin [ASA -] 81 mg PO DAILY 04/21/15 Atorvastatin Ca [Lipitor] 80 mg PO HS 04/21/15 Clopidogrel Bisulfate [Plavix -] 75 mg PO DAILY 04/21/15 Glipizide [Glipizide ER] 5 mg PO BID 04/21/15 Metoprolol Succinate [Toprol XL -] 50 mg PO BID #0 tab.sr.24h 12/03/15 Ranolazine [Ranexa] 500 mg PO BID 06/22/16 Family Disease History - Family Disease History Family Disease History: Other: Father (estranged), Mother (kidney stones, HTN), Brother (4 brothers healthy and living), Sister (1 sister healthy and living) Review of Systems - Review of Systems Constitutional: reports: Fever Eyes: denies: Blurred Vision HENT: denies: Difficult Swallowing Neck: denies: Decreased ROM Cardiovascular: denies: Chest Pain Respiratory: reports: Exercise Intolerance, Orthopnea, SOB on Exertion. denies : Hemoptysis, Wheezing Gastrointestinal: denies: Abdominal Pain Genitourinary: reports: Other (compliant with hd tiw) Physical Exam Vital Sings: Vital Signs Temperature 98.4 F 10/13/18 15:50 Pulse Rate 68 10/13/18 15:50 Respiratory Rate 20 10/13/18 15:50 Blood Pressure 139/82 10/13/18 15:50 O2 Sat by Pulse Oximetry (%) 100 10/13/18 04:18 Constitutional: Yes: Calm Eyes: Yes: EOM Intact HENT: Yes: Normocephalic Neck: Yes: Trachea Midline Cardiovascular: Yes: Regular Rate and Rhythm Respiratory: Yes: Diminished (right base) Gastrointestinal: Yes: Normal Bowel Sounds Renal/: Yes: Other (dialysis) Edema: No Neurological: Yes: Alert Labs: CBC, BMP 10/13/18 14:30 10/13/18 14:30 rest reviewed Imaging - Results Chest X-ray: Report Reviewed, Image Reviewed Cat Scan: Report Reviewed, Image Reviewed Problem List - Problems (1) CHF (congestive heart failure) Code(s): I50.9 - HEART FAILURE, UNSPECIFIED Qualifiers: Heart failure type: unspecified Heart failure chronicity: chronic Qualified Code(s): I50.9 - Heart failure, unspecified (2) Diabetes mellitus Code(s): E11.9 - TYPE 2 DIABETES MELLITUS WITHOUT COMPLICATIONS Qualifiers: Diabetes mellitus type: type 2 Diabetes mellitus snf insulin use: without petroleum terminal plant operator use Diabetes mellitus complication status: without complication Qualified Code(s): E11.9 - Type 2 diabetes mellitus without complications (3) ESRD (end stage renal disease) on dialysis Code(s): N18.6 - END STAGE RENAL DISEASE; Z99.2 - DEPENDENCE ON RENAL DIALYSIS (4) HTN (hypertension) Code(s): I10 - ESSENTIAL (PRIMARY) HYPERTENSION Qualifiers: Hypertension type: essential hypertension Qualified Code(s): I10 - Essential (primary) hypertension (5) Anemia in ESRD (end-stage renal disease) Code(s): N18.6 - END STAGE RENAL DISEASE; D63.1 - ANEMIA IN CHRONIC KIDNEY DISEASE (6) CAD (coronary artery disease) Code(s): I25.10 - ATHSCL HEART DISEASE OF [place] CORONARY ARTERY W/O ANG PCTRS Qualifiers: Coronary Disease-Associated Artery/Lesion type: [place] artery [place] vs. transplanted heart: [place] heart Associated angina: with other forms of angina Qualified Code(s): I25.118 - Atherosclerotic heart disease of [place] coronary artery with other forms of angina pectoris (7) Hyperlipidemia Code(s): E78.5 - HYPERLIPIDEMIA, UNSPECIFIED (8) Pleural effusion Code(s): J90 - PLEURAL EFFUSION, NOT ELSEWHERE CLASSIFIED Assessment/Plan RIGHT EFFUSION LIKELY ON BASIS OF EXTENSIVE UNDERLYING CARDIAC DISEASE DOUBT IT REPRESENTS COMPLICATED PARA-PNEUMONIC EFFUSION WOULD HOLD ON THORACENTESIS AT THIS TIME CONTINUE TO MONITOR WITH F/U CXR CONTINUE HD SCHEDULED WOULD HAVE PREFERRED TO OBSERVE OFF ANTIBIOTICS WILL FOLLOW Emanuel NAYLOR MD
[2018-10-13] MEDS: SEVELAMER CARBONATE 800 MG TAB (FP) PO SCH (19:48)
[2018-10-13] MEDS ORDERED: INSULIN (NOVOLOG) ASPART 100 UNITS/ML 10ML VIAL ONE (21:06)
[2018-10-13] MEDS: ATORVASTATIN CA 80 MG TABLET (FP) PO SCH (21:24)
[2018-10-14] MEDS: INSULIN SLIDING SCALE (NOVOLOG) 1 VIAL SQ SCH ×2 (06:13→13:06)
[2018-10-14 08:17] LABS: ANION GAP 10 MMOL/L (8-16); BLOOD UREA NITROGEN 38 mg/dL (7-18); CALCIUM 9.3 mg/dL (8.5-10.1); CHLORIDE 97 mmol/L (98-107); CO2 29 mmol/L (21-32); GLUCOSE,RANDOM 117 mg/dL (74-106); MAGNESIUM 1.8 mg/dL (1.8-2.4); PHOSPHOROUS 4.9 mg/dL (2.5-4.9); POTASSIUM 4.2 mmol/L (3.5-5.1); SODIUM 135 mmol/L (136-145)
[2018-10-14 08:23] LABS: HEMOGLOBIN 11.3 GM/dL (11.7-16.9); MCHC 34.2 g/dl (32.0-35.9); MEAN CELL VOLUME 90.5 fl (80-96); MEAN PLT VOLUME 10.3 fl (7.5-11.1); PLATELET COUNT 153 K/MM3 (134-434); RBC 3.65 M/mm3 (4.00-5.60); RDW 15.1 % (11.9-15.9); WHITE BLOOD COUNT 5.5 K/mm3 (4.0-10.0)
[2018-10-14] MEDS ORDERED: SODIUM CHLORIDE 250 ML IV PRN (09:31)
[2018-10-14] MEDS ORDERED: LISINOPRIL 10 MG TABLET (FP) PO SCH (10:00)
--- NOTE | 2018-10-14 10:08 | PN ---
Progress Note (short form) - Note Progress Note: s: sob improving, has cough with deep breathing. no chest pain, palps, edema Current Medications Albuterol Sulfate (Ventolin 0.083% Nebulizer Soln -) 1 amp NEB Q4H PRN PRN Reason: SHORT OF BREATH/WHEEZING Last Admin: 10/13/18 11:22 Dose: 1 amp Aspirin (Asa -) 81 mg PO DAILY [facility] Last Admin: 10/13/18 09:58 Dose: 81 mg Atorvastatin Calcium (Lipitor -) 80 mg PO HS [facility] Last Admin: 10/13/18 21:24 Dose: 80 mg Benzocaine/Menthol (Cepacol Lozenge -) 1 each MM PRN PRN PRN Reason: SORE THROAT Clopidogrel Bisulfate (Plavix -) 75 mg PO DAILY [facility] Last Admin: 10/13/18 10:00 Dose: 75 mg Ceftriaxone Sodium 1 gm/ (Dextrose) 50 mls @ 100 mls/hr IVPB DAILY [facility] Last Admin: 10/13/18 09:58 Dose: 100 mls/hr Sodium Chloride (Normal Saline -) 250 mls @ 3,000 mls/hr IV PRN PRN PRN Reason: Hypotension during Dialysis Stop: 10/15/18 09:31 Insulin Aspart (Novolog Vial Sliding Scale -) 1 vial SQ ACHS [facility]; Protocol Last Admin: 10/14/18 06:13 Dose: Not Given Lisinopril (Prinivil) 10 mg PO DAILY [facility] Metoprolol Succinate (Toprol Xl -) 50 mg PO BID [facility] Last Admin: 10/13/18 21:24 Dose: 50 mg Ranolazine (Ranexa -) 500 mg PO BID [facility] Last Admin: 10/13/18 21:24 Dose: 500 mg Sevelamer Carbonate (Renvela -) 800 mg PO TIDCM [facility] Last Admin: 10/13/18 19:48 Dose: 800 mg Vital Signs Vital Signs Period Temp Pulse Resp BP Sys/Link Pulse Ox Last 24 Hr 98.2 F-98.9 F 64-78 18-20 132-161/70-93 100-100 nad no jvd rrr s1s2 no mrg cta bl nl eff aao3 no le e/c/c abd nt nd pos bs no jaundice diaphoresis pos dp pt echo 02/2017: global hk, nl lv size, lvef 40-45%, nl rv, mild tr, mild pr, mild lae echo 05/2016: nl lv size, mild-mod dec lvef, global HK, g2dd, nl rv, mild lae, mild mr, mild tr, trace AR, mod phtn, mild dil ivc echo 11/2015: mild lve, mild-mod dec lvef, global HK, nl rv, mild lae, mild-mod mr, mod tr, rvsp 40-50, mild ar, mod pr Echo 01/2014: normal LV/RV function, mild LVH, no sig valv abn Stress MPI 01/2014: sub-max HR (70%); 6 mins 30 secs, + chest pain, + ST depression , large felicia-apical and moderate apical inferior ischemia and TID mibi 02/2017: large ant/antlat/lat/inflat/inf scar apex to base, minimal periinfarct apical ischemia, lvef 28% cath 11/2015: patent ramirez to lad, occluded sp to om1, stenosed svg to rpda, isr lad and om stents, no interventions done cath 01/2018: same as above cath Cath 03/2015: prox LAD-- new 70-80% disease just proximal to prior patent stent , D1/D2 severe disease, distal LCX--TO, OM1 90-95% ISR, mid/distal RCA 70-80%, RPDA 80-90%, RPL TO Cath/PCI 09/2014 : severe diffuse ISR of bifurcation distal LCx/ OM1 HALLIE stent (V stenting), prox LAD-- new moderate disease just proximal to prior patent stent, residual diffuse RCA disease--medical rx. New HALLIE to OM1 done, distal LCx is now jailed and TO Cath/PCI 05/2014 : severe diffuse ISR of bifurcation distal LCx/ OM1 HALLIE stent ( V stenting)--both CBPTCA ed, prox LAD stent patent, residual diffuse RCA disease --medical rx. Cath/PCI 05/2014: CBPTCA of severe diffuse ISR of bifurcation distal LCx/ OM1 HALLIE stent (V stenting), prox LAD stent patent, residual diffuse RCA disease-- medical rx. Cath/PCI 02/2014: bifurcation distal LCx/ OM1 HALLIE stent (V stenting), residual diffuse RCA disease--medical rx. Cath /PCI 01/2014: prox LAD HALLIE PCI, D1 PTCA, D2 TO, OM1 and distal LCx severe disease (mod sized distal vessels), RPDA--severe diffuse disease, RPL TO (chanel by LCx) carotids 02/2017: mild dz, no sig stenosis holter 08/2017: benign study, pt had palps with NSR ecg: sr, nl intervals, inf/lat twis, no sig change priors ct chest: small-mod right eff a/p: 48 yr old male with syst chf, CAD--s/p 3v CABG 03/2015, pci's, HTN, HPL, DM , ESRD on HD here with sob. sob: -no signs acs -ct chest has small-mod right pleural eff, so possible cause of sob, continued vol removal with HD per renal -also has sxs suggestive of pna, cont abx per pmd CAD s/p PCI and CABG X 3 (RAMIREZ to LAD, SP to OM and SVG to RPDA 03/2015): -Stable. No signs acs. -11/2015 had new onset chf prompted repeat cath showing failure of sp and svg grafts, ramirez still patent. No further revascularization was attempted due to extensive dz and his hx of recurrent ISR. -had repeat cath 01/2018 for persistent cp, similar results to prior cath, no interventions done, rec'd med rx. -cont current dapt, statin, bb, ester, ranexa. HTN: -cont bb, ester HPL: -cont statin ESRD on HD: -Continued hd per renal chronic syst chf: -Recent echo showing reduced lvef, likely related to graft closure. -Cont current chf meds (bb/ester) -cont vol removal with hd per renal.
--- NOTE | 2018-10-14 11:36 | PN ---
Progress Note (short form) - Note Progress Note: Renal follow up for ESRD Pt seen and examined at the bedside s/p dialysis yesterday with 3L UF continues to have orthopnea and cough no leg swelling no chest pain, fever, chills, N/V/D Vital Signs Temperature 98.4 F 10/14/18 09:01 Pulse Rate 73 10/14/18 09:01 Respiratory Rate 20 10/14/18 09:01 Blood Pressure 141/85 10/14/18 09:01 O2 Sat by Pulse Oximetry (%) 100 10/14/18 04:00 Intake & Output 10/11/18 10/12/18 10/13/18 10/14/18 23:59 23:59 23:59 23:59 Intake Total 990 450 Balance 990 450 Weight 83.716 kg NAD RRR, no M/R Dec BS, no rales, wheeze soft NT/ND, no rebound or guarding no LE edema, clubbing or cyanosis CBC, BMP 10/14/18 06:30 10/14/18 06:30 Current Medications Albuterol Sulfate (Ventolin 0.083% Nebulizer Soln -) 1 amp NEB Q4H PRN PRN Reason: SHORT OF BREATH/WHEEZING Last Admin: 10/13/18 11:22 Dose: 1 amp Aspirin (Asa -) 81 mg PO DAILY [facility] Last Admin: 10/13/18 09:58 Dose: 81 mg Atorvastatin Calcium (Lipitor -) 80 mg PO HS [facility] Last Admin: 10/13/18 21:24 Dose: 80 mg Benzocaine/Menthol (Cepacol Lozenge -) 1 each MM PRN PRN PRN Reason: SORE THROAT Clopidogrel Bisulfate (Plavix -) 75 mg PO DAILY [facility] Last Admin: 10/13/18 10:00 Dose: 75 mg Ceftriaxone Sodium 1 gm/ (Dextrose) 50 mls @ 100 mls/hr IVPB DAILY [facility] Last Admin: 10/13/18 09:58 Dose: 100 mls/hr Sodium Chloride (Normal Saline -) 250 mls @ 3,000 mls/hr IV PRN PRN PRN Reason: Hypotension during Dialysis Stop: 10/15/18 09:31 Insulin Aspart (Novolog Vial Sliding Scale -) 1 vial SQ ACHS [facility]; Protocol Last Admin: 10/14/18 06:13 Dose: Not Given Lisinopril (Prinivil) 10 mg PO DAILY [facility] Metoprolol Succinate (Toprol Xl -) 50 mg PO BID [facility] Last Admin: 10/13/18 21:24 Dose: 50 mg Ranolazine (Ranexa -) 500 mg PO BID [facility] Last Admin: 10/13/18 21:24 Dose: 500 mg Sevelamer Carbonate (Renvela -) 800 mg PO TIDCM [facility] Last Admin: 10/13/18 19:48 Dose: 800 mg 48 year old gentleman with hx of ESRD on HD (MWF), DM, CHF, Hyperlipidemia, CAD s/p CABG who presented with complaints of SOB. #Shortness of breath r/o PNA vs. CHF #CAD/CHF #Pleural effusions #ESRD on HD #DM #Hyperlipidemia will plan for isolated UF today to optamize fluid status continue restriction and low salt diet pulmonary and cardiology follow up Miles Gomez DO
[2018-10-14] MEDS ORDERED: DEXTROSE 5%-WATER - 50 ML IVPB ONE (12:53)
[2018-10-14] MEDS ORDERED: cefTRIAXone SODIUM 1 GM VIAL ONE (12:53)
[2018-10-14] MEDS: SEVELAMER CARBONATE 800 MG TAB (FP) PO SCH ×2 (12:57→13:07)
[2018-10-14] MEDS: RANOLAZINE E.R. 500 MG TABLET (FP) PO SCH (12:57)
[2018-10-14] MEDS: CLOPIDOGREL BISULFATE 75 MG TABLET (FP) PO SCH (12:57)
[2018-10-14] MEDS: ASPIRIN 81 MG CHEWABLE TABLETS PO SCH (12:57)
[2018-10-14] MEDS: CEFTRIAXONE 1 GM in DEXTROSE 5%-WATER - 50 ML IVPB SCH (12:58)
--- NOTE | 2018-10-14 13:32 | PN ---
Teaching Attending Note Name of Resident: Elliott Ashraf ATTENDING PHYSICIAN STATEMENT I saw and evaluated the patient. I reviewed the resident's note and discussed the case with the resident. I agree with the resident's findings and plan as documented. SUBJECTIVE: No GREENE , no fever or chills. SOB is better . no N/V. no abd pain , no CP OBJECTIVE: NAD Cv: RRR, no JVd, no MRG Lungs: slight decreased breath sounds at L base Ext: 1+ edema ASSESSMENT AND PLAN: 48 y/o man with h/o CAD, s/p CABG x 3, chronic Systolic heart failure, ESRD on HD MWF, HLP, HTN, DM and other medical problems who presented with SOB and fever. he was found to have R pleural effusion 1- SOB: due to pleural effusion and acute systolic CHF - improved with HD. will get HD today - will add lasix on Non HD days . this was d/w Dr. burrell - case d/w Dr. Awad, Recs not to drain effusion and to stop Abx as P NA is not likely 2- ESRD: HD MWF. will cont as out pt 3- DM: resume glpizide as out pt 4- HTN, CAD: cont ASa, plavix, BB , ACEI , and ranexa Dispo: will dc home today after HD . if fever recurs he knows he needs to come back to ER. f/u with PCP , dr. Mohamud and Dr. Castro
--- NOTE | 2018-10-14 14:13 | PN ---
Progress Note (short form) - Note Progress Note: PULMONARY HARSH COUGH CONTINUES VSS/AFEBRILE Constitutional: Yes: Calm Eyes: Yes: EOM Intact HENT: Yes: Normocephalic Neck: Yes: Trachea Midline Cardiovascular: Yes: Regular Rate and Rhythm Respiratory: Yes: Diminished (right base) Gastrointestinal: Yes: Normal Bowel Sounds Renal/: Yes: Other (dialysis) Edema: No Neurological: Yes: Alert Labs: REVIEWED - Problems (1) CHF (congestive heart failure) Code(s): I50.9 - HEART FAILURE, UNSPECIFIED Qualifiers: Heart failure type: unspecified Heart failure chronicity: chronic Qualified Code(s): I50.9 - Heart failure, unspecified (2) Diabetes mellitus Code(s): E11.9 - TYPE 2 DIABETES MELLITUS WITHOUT COMPLICATIONS Qualifiers: Diabetes mellitus type: type 2 Diabetes mellitus usp insulin use: without monument setter use Diabetes mellitus complication status: without complication Qualified Code(s): E11.9 - Type 2 diabetes mellitus without complications (3) ESRD (end stage renal disease) on dialysis Code(s): N18.6 - END STAGE RENAL DISEASE; Z99.2 - DEPENDENCE ON RENAL DIALYSIS (4) HTN (hypertension) Code(s): I10 - ESSENTIAL (PRIMARY) HYPERTENSION Qualifiers: Hypertension type: essential hypertension Qualified Code(s): I10 - Essential (primary) hypertension (5) Anemia in ESRD (end-stage renal disease) Code(s): N18.6 - END STAGE RENAL DISEASE; D63.1 - ANEMIA IN CHRONIC KIDNEY DISEASE (6) CAD (coronary artery disease) Code(s): I25.10 - ATHSCL HEART DISEASE OF CIRCLE CORONARY ARTERY W/O ANG PCTRS Qualifiers: Coronary Disease-Associated Artery/Lesion type: [place] artery [place] vs. transplanted heart: [place] heart Associated angina: with other forms of angina Qualified Code(s): I25.118 - Atherosclerotic heart disease of [place] coronary artery with other forms of angina pectoris (7) Hyperlipidemia Code(s): E78.5 - HYPERLIPIDEMIA, UNSPECIFIED (8) Pleural effusion Code(s): J90 - PLEURAL EFFUSION, NOT ELSEWHERE CLASSIFIED Assessment/Plan RIGHT EFFUSION LIKELY ON BASIS OF EXTENSIVE UNDERLYING CARDIAC DISEASE DOUBT IT REPRESENTS COMPLICATED PARA-PNEUMONIC EFFUSION WOULD HOLD ON THORACENTESIS AT THIS TIME F/U CXR ORDERED FOR TODAY CONTINUE HD SCHEDULED R CYNDY ANDREW Problem List - Problems (1) CHF (congestive heart failure) Code(s): I50.9 - HEART FAILURE, UNSPECIFIED Qualifiers: Heart failure type: unspecified Heart failure chronicity: chronic Qualified Code(s): I50.9 - Heart failure, unspecified (2) Diabetes mellitus Code(s): E11.9 - TYPE 2 DIABETES MELLITUS WITHOUT COMPLICATIONS Qualifiers: Diabetes mellitus type: type 2 Diabetes mellitus usp insulin use: without usp use Diabetes mellitus complication status: without complication Qualified Code(s): E11.9 - Type 2 diabetes mellitus without complications (3) ESRD (end stage renal disease) on dialysis Code(s): N18.6 - END STAGE RENAL DISEASE; Z99.2 - DEPENDENCE ON RENAL DIALYSIS (4) HTN (hypertension) Code(s): I10 - ESSENTIAL (PRIMARY) HYPERTENSION Qualifiers: Hypertension type: essential hypertension Qualified Code(s): I10 - Essential (primary) hypertension (5) Anemia in ESRD (end-stage renal disease) Code(s): N18.6 - END STAGE RENAL DISEASE; D63.1 - ANEMIA IN CHRONIC KIDNEY DISEASE (6) CAD (coronary artery disease) Code(s): I25.10 - ATHSCL HEART DISEASE OF CIRCLE CORONARY ARTERY W/O ANG PCTRS Qualifiers: Coronary Disease-Associated Artery/Lesion type: [place] artery [place] vs. transplanted heart: [place] heart Associated angina: with other forms of angina Qualified Code(s): I25.118 - Atherosclerotic heart disease of [place] coronary artery with other forms of angina pectoris (7) Hyperlipidemia Code(s): E78.5 - HYPERLIPIDEMIA, UNSPECIFIED (8) Pleural effusion Code(s): J90 - PLEURAL EFFUSION, NOT ELSEWHERE CLASSIFIED
[2018-10-14 14:33] VITALS: BP 137/83; PULSE 76; TEMP 97.8
[2018-10-14] MEDS ORDERED: guaiFENesin/D-METHORPHAN HB 10 ML UNIT-DOSE CUPS PO PRN (15:05)
--- NOTE | 2018-10-14 15:31 | DS ---
Physical Exam: SUBJECTIVE: Patient seen and examined at bedside. No acute events. OBJECTIVE: Vital Signs Period Temp Pulse Resp BP Sys/Link Pulse Ox Last 24 Hr 97.8 F-98.9 F 64-79 17-20 124-161/70-99 100-100 PHYSICAL EXAM GENERAL: NAD HEAD: Atrumatic/ Normocephalic EYES: EOMI Sclera Clear ENT: MMM NECK: Trachea midline, full range of motion, supple. LUNGS: CTAB HEART: Murmur most likely 2/2 radiation from AVF. ABDOMEN: Tender to deep palpation costophrenic area EXTREMITIES: Trace edema. AVF left extremity, bruit auscultated NEUROLOGICAL: Cranial nerves II through XII grossly intact. PSYCH: Normal mood, normal affect. LABS Laboratory Results - last 24 hr 10/13/18 10/13/18 10/13/18 14:30 14:30 16:47 WBC 7.5 RBC 3.56 L Hgb 11.1 L Hct 32.7 L MCV 92.0 MCH 31.3 MCHC 34.1 RDW 15.0 Plt Count 192 D MPV 10.4 Sodium 134 L Potassium 4.0 Chloride 98 Carbon Dioxide 26 Anion Gap 10 BUN 57 H Creatinine 7.8 H* Creat Clearance w eGFR 7.48 POC Glucometer 68 Random Glucose 71 L Calcium 9.0 Phosphorus 5.5 H Magnesium 10/13/18 10/14/18 10/14/18 21:22 06:12 06:30 WBC 5.5 RBC 3.65 L Hgb 11.3 L Hct 33.0 L MCV 90.5 MCH 31.0 MCHC 34.2 RDW 15.1 Plt Count 153 D MPV 10.3 Sodium Potassium Chloride Carbon Dioxide Anion Gap BUN Creatinine Creat Clearance w eGFR POC Glucometer 176 120 Random Glucose Calcium Phosphorus Magnesium 10/14/18 10/14/18 06:30 11:43 WBC RBC Hgb Hct MCV MCH MCHC RDW Plt Count MPV Sodium 135 L Potassium 4.2 Chloride 97 L Carbon Dioxide 29 Anion Gap 10 BUN 38 H Creatinine 6.0 H Creat Clearance w eGFR 10.13 POC Glucometer 167 Random Glucose 117 H Calcium 9.3 Phosphorus 4.9 Magnesium 1.8 HOSPITAL COURSE: Date of Admission:10/12/18 pt is a 48 y/o M with a PMH diastolic CHF, HLD, IDDM, ESRD (on dialysis M,W, F. Has L AVF), hx past CABG 2014, cath 2014, 2016, hx 7 stents, [facility]/o gradually worsening SOB over the past two weeks. Pt was found to have a R pleural effusion. Pt was given vanc+zosyn in ED and then switched to Ceftriaxone 1 gm daily. Pt received HD during his stay. Pt also underwent isolated UF to optimize his fluid status. Furthermore, pt was started on Lasix PO on Non-HD days. ABx were stopped at the request of pulmonology as effusion was most likely 2/2 underlying cardiac disease and not the result of a para- pneumonic effusion. A thoracentesis was not recommended per pulmonology. Date of Discharge: 10/14/18 Minutes to complete discharge: 35 Discharge Summary Reason For Visit: CHF,END STAGE RENAL FAILURE ON DIALYSIS,PNEUMONIE Current Active Problems Pleural effusion (Acute) Pneumonia (Acute) CHF (congestive heart failure) (Chronic) Diabetes mellitus (Chronic) ESRD (end stage renal disease) on dialysis (Chronic) HTN (hypertension) (Chronic) Condition: Improved - Instructions Diet, Activity, Other Instructions: You presented to the hospital due to shortness of breath. You were found to have water around your lung . You were treated with antibiotics. Please continue your dialysis as scheduled Tuesday, Tuesday, and Tuesday. Please follow up with your auto body repair teacher, Dr Drake this Tuesday for your next Dialysis session. Please follow up with the pharmacy district manager, Dr Castro in a week Please follow up with the Lung doctor, Dr Rodríguez in 2 weeks You were started on 2 new medications during your stay: Lisinopril and Lasix. Please take Lasinopril 10 mg Daily Please take Lasix 60 MG on NON- Dialysis days Please return to the hospital if you begin to experience chest pain, shortness of breath, nausea/vomiting, fever/chills, or any other abnormal symptom. Referrals: Domingo Rodríguez MD [Staff Physician] - Darren Castro MD [Staff Physician] - Miles Gomez MD [Staff Physician] - Disposition: HOME - Home Medications Comprehensive Discharge Medication List: Ambulatory Orders Aspirin [ASA -] 81 mg PO DAILY 04/21/15 Atorvastatin Ca [Lipitor] 80 mg PO HS 09/28/15 Clopidogrel Bisulfate [Plavix -] 75 mg PO DAILY 04/21/15 Glipizide [Glipizide ER] 5 mg PO BID 04/21/15 Metoprolol Succinate [Toprol XL -] 50 mg PO BID #0 tab.sr.24h 12/03/15 Ranolazine [Ranexa] 500 mg PO BID 06/22/16 Furosemide [Lasix] 60 mg PO ASDIR #30 tablet 10/14/18 Lisinopril 10 mg PO DAILY #30 tablet 10/14/18 This patient is new to me today: No Emergency Visit: Yes ED Registration Date: 10/12/18 Care time: The patient presented to the Emergency Department on the above date and was hospitalized for further evaluation of their emergent condition. Critical Care patient: No - Discharge Referral Referred to [facility] No
--- NOTE | 2018-10-14 17:13 | EKG ---
Test Reason : Blood Pressure : / mmHG Vent. Rate : 084 BPM Atrial Rate : 084 BPM P-R Int : 152 ms QRS Dur : 120 ms QT Int : 422 ms P-R-T Axes : 058 051 176 degrees QTc Int : 498 ms NORMAL SINUS RHYTHM POSSIBLE LEFT ATRIAL ENLARGEMENT NON-SPECIFIC INTRA-VENTRICULAR CONDUCTION DELAY ABNORMAL ECG WHEN COMPARED WITH ECG OF 05-APR-2017 19:31, CRITERIA FOR LATERAL INFARCT ARE NO LONGER PRESENT INVERTED T WAVES HAVE REPLACED NONSPECIFIC T WAVE ABNORMALITY IN INFERIOR LEADS T WAVE INVERSION NOW EVIDENT IN ANTERIOR LEADS Confirmed by ARELY BERNAL MD ([id number]) on 10/14/2018 5:13:16 PM Referred By: Confirmed By:ARELY BERNAL MD
[2018-10-15 07:25] LABS: HBSAG SCREEN Negative (Negative); HEP B CORE AB, TOT Negative (Negative)
== END 2018-10-14 16:26 | disposition home or self-care (01) ==
LOC: JER 13:40 → JERBED 14:28 → OBSVTOIN 19:07 → INTOOBSV 19:07 → J5S 20:28
PROVIDERS: ADMIT Internal Medicine; ATTEND Internal Medicine
PROC: 3E03329 Introduction of Other Anti-infective into Peripheral Vein, Percutaneous Approach (ICD-10-PCS; principal; 2018-10-12)
PROC: 3E033GC Introduction of Other Therapeutic Substance into Peripheral Vein, Percutaneous Approach (ICD-10-PCS; 2018-10-12)
PROC: 3E013VG Introduction of Insulin into Subcutaneous Tissue, Percutaneous Approach (ICD-10-PCS; 2018-10-12)
PROC: 3E0F7GC Introduction of Other Therapeutic Substance into Respiratory Tract, Via Natural or Artificial Opening (ICD-10-PCS; 2018-10-12)
DX: J18.9 Pneumonia, unspecified organism (principal); J90 Pleural effusion, not elsewhere classified; E11.22 Type 2 diabetes mellitus with diabetic chronic kidney disease; I12.0 Hypertensive chronic kidney disease with stage 5 chronic kidney disease or end stage renal disease; N18.6 End stage renal disease; I11.0 Hypertensive heart disease with heart failure; I50.30 Unspecified diastolic (congestive) heart failure; I25.10 Atherosclerotic heart disease of native coronary artery without angina pectoris; I25.2 Old myocardial infarction; D63.1 Anemia in chronic kidney disease; E78.5 Hyperlipidemia, unspecified; R06.02 Shortness of breath; Z99.2 Dependence on renal dialysis; Z79.4 Long term (current) use of insulin; Z79.84 Long term (current) use of oral hypoglycemic drugs; Z95.1 Presence of aortocoronary bypass graft; Z95.5 Presence of coronary angioplasty implant and graft; Z79.82 Long term (current) use of aspirin
CPT/HCPCS: 36415; 71045-TC-FY; 71046-TC-FY; 71250-TC; 80048; 80053; 82962; 83605; 83735; 84100; 85025; 85027; 86704; 86706; 86708; 86803; 87040; 87340; 87633; 87804; 87899; 93005; 93010; 94640; 99282-25; G0378; J1644

== ENCOUNTER 2019-04-23 14:57 | Observation (INO) | payer OTHER ==
--- NOTE | 2019-04-23 15:06 | PDOC ---
Rapid Medical Evaluation Time Seen by Provider: 04/23/19 15:00 Medical Evaluation: Allergies Allergy/AdvReac Type Severity Reaction Status Date / Time No Known Allergies Allergy Verified 10/12/18 13:46 04/23/19 15:00 CC: weakness, dizzines, vomiting since last night. PMHx- CHF, CRF PE: Lungs CTAB. ABD SNTND. holosystolic murmur Orders: cardiac w/u Pt will proceed to ER for further evaluation. 04/23/19 15:04
[2019-04-23 15:32] LABS: BASO % 0.8 % (0-2.0); EOS % 0.5 % (0-4.5); HEMATOCRIT 37.4 % (35.4-49); HEMOGLOBIN 12.2 GM/dL (11.7-16.9); LYMPH % 8.6 % (8-40); MCH 30.7 pg (25.7-33.7); MCHC 32.7 g/dl (32.0-35.9); MEAN CELL VOLUME 94.1 fl (80-96); MEAN PLT VOLUME 10.1 fl (7.5-11.1); MONO % 11.2 % (3.8-10.2); NEUT % 78.9 % (42.8-82.8); PLATELET COUNT 193 K/MM3 (134-434); RBC 3.97 M/mm3 (4.00-5.60); RDW 17.4 % (11.9-15.9); WHITE BLOOD COUNT 10.5 K/mm3 (4.0-10.0)
[2019-04-23 15:58] LABS: INR 1.36 (0.83-1.09); PROTHROMBIN TIME (PATIENT) 16.1 SEC (9.7-13.0)
[2019-04-23 16:06] LABS: ALBUMIN 3.8 g/dl (3.4-5.0); ALK PHOS 188 U/L (45-117); ANION GAP 13 MMOL/L (8-16); BILIRUBIN,TOTAL 1.3 mg/dL (0.2-1); BLOOD UREA NITROGEN 69.7 mg/dL (7-18); CALCIUM 9.9 mg/dL (8.5-10.1); CHLORIDE 97 mmol/L (98-107); CO2 22 mmol/L (21-32); GLUCOSE,RANDOM 75 mg/dL (74-106); LIPASE 94 U/L (73-393); MAGNESIUM 2.2 mg/dL (1.8-2.4); SGOT/AST 42 U/L (15-37); SGPT/ALT 30 U/L (13-61); SODIUM 132 mmol/L (136-145); TOT PROT 7.9 g/dl (6.4-8.2)
[2019-04-23 16:08] LABS: CREATININE 10.1 mg/dL (0.55-1.3); POTASSIUM 6.3 mmol/L (3.5-5.1)
--- NOTE | 2019-04-23 16:29 | PDOC ---
History of Present Illness - General Chief Complaint: Pain Stated Complaint: THROWING UP/ WEAKNESS Time Seen by Provider: 04/23/19 15:00 - History of Present Illness Initial Comments: 04/23/19 16:40 48yo M hx ESRD on HD M/W/F (last went Tuesday, missed today), systolic HF (LVEF 45% in 2017 echo), CAD s/p 3v CABG in 2014, HTN, HLD, and DM presents with multiple chronic complaints, unchanged x6mo being evaluated by GI, and missed dialysis today. Pt came here instead of dialysis because he states he couldn't tolerate his chronic sx anymore. Denies new sx today or worsening of sx since missed dialysis. Pt c/o 6mo intermittent, diffuse/upper abdominal pain, cramping /bloated type feels like around top of abdomen at diaphragm, multiple times every day x6mo, worse when walking, radiates to L chest and throat, feels like throat closes up, associated with SOB and fatigue. Pt can eat and drink and tolerate some but endorses NBNB emesis 2x/day x6mo; pt feels lightheaded and gets a diffuse headache after vomiting every time, and occasionally has post- emesis syncope, last time 1wk ago. Endorses chronic constipation x6mo, but is still passing gas. Endorses generalized weakness, fatigue, and weight loss of 25 -30lbs over 6mo. Denies fever, diaphoresis, cough, wheezing, palpitations, leg swelling, calf tenderness, diarrhea, nausea, blood in stool, vertigo, focal weakness, numbness, dysuria, hematuria. Pt is currently being evaluated by GI Dr Miguel for these chronic sx, some tests done some pending, seen 2x this month. Financial Sales Advisor Matthew. PCP Catrachito. Supervisor Chassis Assembly Moustapha. Past History - Past Medical History Allergies/Adverse Reactions: Allergies Allergy/AdvReac Type Severity Reaction Status Date / Time No Known Allergies Allergy Verified 04/23/19 15:22 Home Medications: Ambulatory Orders Aspirin [ASA -] 81 mg PO DAILY 04/21/15 Atorvastatin Ca [Lipitor] 80 mg PO HS 04/21/15 Clopidogrel Bisulfate [Plavix -] 75 mg PO DAILY 04/21/15 Glipizide [Glipizide ER] 5 mg PO BID 04/21/15 Metoprolol Succinate [Toprol XL -] 50 mg PO BID #0 tab.sr.24h 12/03/15 Ranolazine [Ranexa] 500 mg PO BID 06/22/16 Furosemide [Lasix] 60 mg PO ASDIR #30 tablet 10/14/18 Lisinopril 10 mg PO DAILY #30 tablet 10/14/18 Anemia: No Asthma: No Cancer: No Cardiac Disorders: Yes (mi ) CVA: No COPD: No CHF: No Dementia: No Diabetes: Yes Dialysis: Yes GI Disorders: No Disorders: No HTN: Yes Hypercholesterolemia: Yes Liver Disease: No Seizures: No Thyroid Disease: No - Surgical History Cardiac Surgery: Yes (7STENTs-02/08/14,TRIPLE BYPASS 03/2015,CABG -2015) - Immunization History Immunization Up to Date: Yes - Psycho Social/Smoking Cessation Hx Smoking Status: No Smoking History: Never smoked Have you smoked in the past 12 months: No Number of Cigarettes Smoked Daily: 0 Information on smoking cessation initiated: No Hx Alcohol Use: No Drug/Substance Use Hx: No Substance Use Type: None Hx Substance Use Treatment: No Review of Systems - Review of Systems Comments:: 04/23/19 17:35 Constitutional: Positive for chills, fatigue. Negative for fever, diaphoresis. HENT: Negative for sore throat, rhinorrhea, congestion. Eyes: Negative for visual disturbance. Respiratory: Positive for shortness of breath. Negative for cough, and wheezing. Cardiovascular: Positive for chest pain. Negative for palpitations, and leg swelling. Gastrointestinal: Positive for abdominal pain, constipation, vomiting. Negative for blood in stool, diarrhea, nausea. Genitourinary: Negative for dysuria, flank pain, and hematuria. Musculoskeletal: Negative for myalgias, back pain, and neck pain. Skin: Negative for rash. Neurological: Positive for light-headedness, headaches, syncope. Negative for vertigo, focal weakness, numbness. Psychiatric/Behavioral: Negative for behavioral problems and confusion. *Physical Exam - Vital Signs Last Vital Signs Temp Pulse Resp BP Pulse Ox 99.1 F 88 20 141/83 98 04/23/19 15:22 04/23/19 15:22 04/23/19 15:22 04/23/19 15:22 04/23/19 15:22 - Physical Exam Comments: 04/23/19 18:37 Gen: Alert, NAD, comfortable-appearing. HEENT: PERRL, EOMI, MMM, NCAT. No conjunctival pallor. Sclera are non-icteric. CV: Regular rate and rhythm. +holosystolic murmur. No rubs, or gallops. PULM: No resp distress. CTAB, decreased breath sounds R lower lobe, no wheezes, rales, or rhonchi. ABD: diffuse TTP, soft, ND, no rebound tenderness or guarding, no CVA tenderness. BACK: No TTP of c/t/l-spine. No step-offs or deformities. MSK: No bony deformities. 2+ pulses in all extremities. NEURO: AAOx3. PERRL. No gross CN deficits. Strength and sensation grossly intact throughout. EXTREMITIES: No cyanosis. No clubbing. No edema. No calf tenderness. PSYCH: Normal mood and thought pattern. SKIN: Warm and dry. Normal capillary refill. No rashes. No jaundice. Heart Score/ECG Review - ECG Impressions Comment:: 04/23/19 18:40 1504: NSR, 89bpm, DELVIN 182ms, QRS duration 136ms, QTc 479ms, nonspecific intraventricular block, TWIs in I/aVL/V2/V4-V6, no ST elevations or depressions. Compared to 10/12/18, deeper TWIs in V4-V6. ED Treatment Course - LABORATORY CBC & Chemistry Diagram: 04/23/19 15:18 04/23/19 15:18 - ADDITIONAL ORDERS Additional order review: Laboratory Results 04/23/19 04/23/19 15:18 15:18 PT with INR 16.10 H INR 1.36 H Sodium 132 L Potassium 6.3 H* Chloride 97 L Carbon Dioxide 22 Anion Gap 13 BUN 69.7 H Creatinine 10.1 H* Est GFR (CKD-EPI)AfAm 6.32 Est GFR (CKD-EPI)NonAf 5.45 Random Glucose 75 Calcium 9.9 Magnesium 2.2 Total Bilirubin 1.3 H AST 42 H ALT 30 Alkaline Phosphatase 188 H Total Protein 7.9 Albumin 3.8 Lipase 94 04/23/19 15:18 RBC 3.97 L MCV 94.1 MCHC 32.7 RDW 17.4 H MPV 10.1 Neutrophils % 78.9 Lymphocytes % 8.6 D Monocytes % 11.2 H Eosinophils % 0.5 D Basophils % 0.8 Medical Decision Making - Medical Decision Making 04/23/19 16:40 48yo M hx ESRD on HD M/W/F (last went Tuesday, missed today), systolic HF (LVEF 45% in 2017 echo), CAD s/p 3v CABG in 2014, HTN, HLD, and DM presents with multiple chronic complaints, unchanged x6mo being evaluated by GI, and missed dialysis today. Pt came here instead of dialysis because he couldn't tolerate his chronic sx anymore. Hemodynamically stable, afebrile, neurologically intact , diffuse abdomen TTP w/o rebound tenderness or guarding. Chronic fatigue, vomiting, and abdominal pain unchanged x6mo, no new sx or fever or concerning sx such as hematemesis, being worked up by GI, CTAP done 03/16/19 for same sx ( small to moderate pleural effusion on R seen with scarring, status post CABG with borderline cardiomegaly, no e/o bowel obstruction, small kidneys suggesting chronic renal disease), review labs, no indication for further imaging at this time. -Labs reviewed. Of note, WBC 10.5, Na 132 (135 on 09/2018), K 6.3 (4.2 on 09/2018) , BUN 69.7 (38 on 09/2018), Cr 10.1 (6.0 on 09/2018), Tbili 1.3 (0.4 on 09/2018), Trop 1.73. -EKG reviewed. Deep inverted T waves V4-V6, present on prior EKG, but appear deeper today. 1504: NSR, 89bpm, DELVIN 182ms, QRS duration 136ms, QTc 479ms, nonspecific intraventricular block, TWIs in I/aVL/V2/V4-V6, no ST elevations or depressions. -Pending CXR. -Insulin, glucose, and calcium for hyperkalemia. -Consult manufacturing controller Dr Gerard -Dispo: Admit for dialysis, hyperkalemia, and elevated trop. 04/23/19 17:[address] Katja Gerard. 04/23/19 17:32 Spoke with reference and instruction librarian manufacturing controller Dr Aquino. Will admit telemetry and get dialysis tonight due to hyperkalemia and elevated troponin. Agrees with plan. Microblog sent to hospitalist for admission telemetry dialysis, +trop, EKG changes. 04/23/19 17:[address] Signed out to admitting Dr. Vogel. 04/23/19 18:05 BNP >[id number]. 04/23/19 18:24 Pt feeling a little "weird". Fingerstick ordered. 04/23/19 18:29 Fingerstick glucose 156. Dialysis called nurse - stated cannot do dialysis with cardiac monitoring unless pt has/is in hospital bed already. Repeating trop. 04/23/19 19:21 CXR read with attending. Large heart. Since 10/14/18, increase in R pleural fluid w/some R base atelectasis. 04/23/19 19:25 Trop 1.46. Discharge - Discharge Information Problems reviewed: Yes Clinical Impression/Diagnosis: ESRD (end stage renal disease) on dialysis, Elevated troponin level, Hyperkalemia Condition: Stable - Admission Yes - Follow up/Referral Referrals: ON STAFF,NOT [Primary Care Provider] - - Patient Discharge Instructions - Post Discharge Activity
[2019-04-23] MEDS ORDERED: INSULIN REGULAR HUMAN 100 UNITS/ML *VIAL IVPUSH ONE (17:08)
[2019-04-23] MEDS ORDERED: DEXTROSE 50%-WATER - 25 GM/50 ML VIAL IVPUSH ONE (17:08)
[2019-04-23] MEDS ORDERED: CALCIUM GLUCONATE 10% - 1,000 MG/10 ML VIAL IVPUSH ONE (17:12)
[2019-04-23] MEDS ORDERED: SODIUM CHLORIDE 250 ML IV PRN (17:20)
[2019-04-23] MEDS ORDERED: CALCIUM GLUCONATE 10% - 1,000 MG/10 ML VIAL ONE (17:35)
[2019-04-23] MEDS ORDERED: INSULIN REGULAR HUMAN 100 UNITS/ML *VIAL ONE (17:35)
[2019-04-23] MEDS ORDERED: DEXTROSE 50%-WATER - 25 GM/50 ML VIAL ONE (17:35)
--- NOTE | 2019-04-23 17:38 | PDOC ---
Documentation entered by Rosetta Zhou SCRIBE, acting as scribe for Larissa Clarke MD. Larissa Clarke MD: This documentation has been prepared by the Winnie lombardo Brenda, SCRIBE, under my direction and personally reviewed by me in its entirety. I confirm that the documentation accurately reflects all work, treatment, procedures, and medical decision making performed by me. Attending Attestation - Resident Resident Name: Barbara Baez - ED Attending Attestation I have performed the following: I have examined & evaluated the patient, The case was reviewed & discussed with the resident, I agree w/resident's findings & plan, Exceptions are as noted - HPI HPI: 04/23/19 17:26 this 48 yo male has h/o ESRD and missed his dialysis today and his potassium is elevate to 6.3 - Physicial Exam PE: 04/23/19 17:[address] Baez's physical exam - Medical Decision Making 04/23/19 17:31 48 yo male with PMH of ESRD,HTN.diabetes being admitted to telemetry for positive troponin and ekg changes k=6.3 and given calcium gluconate ,insulin and dextrose troponin=1.73 the ekg has deep inverted T waves V4-V6
[2019-04-23 17:52] LABS: N-TERMINAL BNP > 175000.0 pg/ml (5-125)
--- NOTE | 2019-04-23 18:57 | HP ---
Admitting History and Physical - Primary Care Physician PCP: Odilia Vogel - Admission History of Present Illness: 48yo M hx ESRD on HD M/W/F (last went Tuesday, missed today), systolic HF (LVEF 45% in 2017 echo), CAD s/p 3v CABG in 2014, HTN, HLD, and DM presents with multiple chronic complaints, unchanged x6mo being evaluated by GI, and missed dialysis today. Pt came here instead of dialysis because he couldn't tolerate his chronic sx anymore. - Past Medical History Cardiovascular: Yes: CAD, CHF, HTN, Hyperlipdemia. No: AFIB Pulmonary: Yes: Other (pleural effusion) Renal/: Yes: Renal Failure Heme/Onc: Yes: Anemia Endocrine: Yes: Diabetes Mellitus - Past Surgical History Past Surgical History: Yes: CABG (04/09/15 at [facility]), Stent (7 cardiac stents) - Smoking History Smoking history: Never smoked Have you smoked in the past 12 months: No Aproximately how many cigarettes per day: 0 - Alcohol/Substance Use Hx Alcohol Use: No History of Substance Use: reports: None - Social History ADL: Independent Occupation: works in a intermediate History of Recent Travel: No Home Medications - Allergies Allergies/Adverse Reactions: Allergies Allergy/AdvReac Type Severity Reaction Status Date / Time No Known Allergies Allergy Verified 04/23/19 15:22 - Home Medications Home Medications: Ambulatory Orders Aspirin [ASA -] 81 mg PO DAILY 04/21/15 Atorvastatin Ca [Lipitor] 80 mg PO HS 04/21/15 Clopidogrel Bisulfate [Plavix -] 75 mg PO DAILY 04/21/15 Glipizide [Glipizide ER] 5 mg PO BID 04/21/15 Metoprolol Succinate [Toprol XL -] 50 mg PO BID #0 tab.sr.24h 12/03/15 Ranolazine [Ranexa] 500 mg PO BID 06/22/16 Furosemide [Lasix] 60 mg PO ASDIR #30 tablet 10/14/18 Lisinopril 10 mg PO DAILY #30 tablet 10/14/18 Physical Examination Vital Signs: Vital Signs Temperature 99.1 F 04/23/19 15:22 Pulse Rate 75 04/23/19 18:42 Respiratory Rate 04/23/19 18:42 Blood Pressure 118/65 04/23/19 18:42 O2 Sat by Pulse Oximetry (%) 98 04/23/19 18:42 Constitutional: Yes: No Distress HENT: Yes: Atraumatic Neck: Yes: Supple Cardiovascular: Yes: Regular Rate and Rhythm Respiratory: Yes: CTA Bilaterally Gastrointestinal: Yes: Normal Bowel Sounds Extremities: Yes: WNL Neurological: Yes: Alert, Oriented Labs: CBC, BMP 04/23/19 15:18 04/23/19 15:18 Problem List - Problems (1) ESRD (end stage renal disease) on dialysis Assessment/Plan: misssed a treatment will get hd in hospital Code(s): N18.6 - END STAGE RENAL DISEASE; Z99.2 - DEPENDENCE ON RENAL DIALYSIS (2) CAD (coronary artery disease) Code(s): I25.10 - ATHSCL HEART DISEASE OF [place] CORONARY ARTERY W/O ANG PCTRS (3) CHF (congestive heart failure) Code(s): I50.9 - HEART FAILURE, UNSPECIFIED (4) Diabetes mellitus Code(s): E11.9 - TYPE 2 DIABETES MELLITUS WITHOUT COMPLICATIONS (5) HTN (hypertension) Assessment/Plan: on meds monitor Code(s): I10 - ESSENTIAL (PRIMARY) HYPERTENSION (6) Hyperlipidemia Code(s): E78.5 - HYPERLIPIDEMIA, UNSPECIFIED Assessment/Plan Laboratory Tests 04/23/19 04/23/19 04/23/19 15:18 15:18 15:18 WBC 10.5 H RBC 3.97 L Hgb 12.2 Hct 37.4 MCV 94.1 MCH 30.7 MCHC 32.7 RDW 17.4 H Plt Count 193 D MPV 10.1 Absolute Neuts (auto) 8.3 H Neutrophils % 78.9 Lymphocytes % 8.6 D Monocytes % 11.2 H Eosinophils % 0.5 D Basophils % 0.8 Nucleated RBC % 0 PT with INR INR Sodium 132 L Potassium 6.3 H* Chloride 97 L Carbon Dioxide 22 Anion Gap 13 BUN 69.7 H Creatinine 10.1 H* Est GFR (CKD-EPI)AfAm 6.32 Est GFR (CKD-EPI)NonAf 5.45 POC Glucometer Random Glucose 75 Calcium 9.9 Magnesium 2.2 Total Bilirubin 1.3 H AST 42 H ALT 30 Alkaline Phosphatase 188 H Creatine Kinase 143 Troponin I 1.73 H* B-Natriuretic Peptide > 588887.0 H Total Protein 7.9 Albumin 3.8 Lipase 94 04/23/19 04/23/19 04/23/19 15:18 18:26 18:32 WBC RBC Hgb Hct MCV MCH MCHC RDW Plt Count MPV Absolute Neuts (auto) Neutrophils % Lymphocytes % Monocytes % Eosinophils % Basophils % Nucleated RBC % PT with INR 16.10 H INR 1.36 H Sodium Potassium Chloride Carbon Dioxide Anion Gap BUN Creatinine Est GFR (CKD-EPI)AfAm Est GFR (CKD-EPI)NonAf POC Glucometer 156 Random Glucose Calcium Magnesium Total Bilirubin AST ALT Alkaline Phosphatase Creatine Kinase Troponin I 1.46 H* B-Natriuretic Peptide Total Protein Albumin Lipase 04/23/19 04/24/19 04/24/19 23:40 06:31 13:25 WBC RBC Hgb Hct MCV MCH MCHC RDW Plt Count MPV Absolute Neuts (auto) Neutrophils % Lymphocytes % Monocytes % Eosinophils % Basophils % Nucleated RBC % PT with INR INR Sodium 134 L Potassium 4.3 Chloride 96 L Carbon Dioxide 29 Anion Gap 9 BUN 43.7 H Creatinine 6.6 H Est GFR (CKD-EPI)AfAm 10.56 Est GFR (CKD-EPI)NonAf 9.11 POC Glucometer 121 Random Glucose 160 H Calcium 9.0 Magnesium Total Bilirubin AST ALT Alkaline Phosphatase Creatine Kinase Troponin I 1.41 H* B-Natriuretic Peptide Total Protein Albumin Lipase Active Medications Generic Name Dose Route Start Last Admin Trade Name Freq PRN Reason Stop Dose Admin Aspirin 81 mg 04/24/19 10:00 04/24/19 09:12 Asa - PO 81 mg DAILY MARTHA Administration Atorvastatin Calcium 80 mg 04/23/19 22:00 04/24/19 00:43 Lipitor - PO 80 mg HS MARTHA Administration Clopidogrel Bisulfate 75 mg 04/24/19 10:00 04/24/19 09:12 Plavix - PO 75 mg DAILY MARTHA Administration Glipizide 5 mg 04/24/19 07:00 04/24/19 06:32 Glucotrol Xl - PO 5 mg DAILY@0700 MARTHA Administration Sodium Chloride 250 mls @ 3,000 mls/hr 04/23/19 17:20 Normal Saline - IV 04/24/19 17:20 PRN PRN Hypotension during Dialysis Sodium Chloride 250 mls @ 3,000 mls/hr 04/24/19 14:09 Normal Saline - IV 04/25/19 14:09 PRN PRN Hypotension during Dialysis Lisinopril 10 mg 04/24/19 10:00 04/24/19 09:13 Prinivil PO 10 mg DAILY MARTHA Administration Metoprolol Succinate 50 mg 04/24/19 10:00 04/24/19 09:13 Toprol Xl - PO 50 mg DAILY MARTHA Administration Ranolazine 500 mg 04/23/19 22:00 04/24/19 09:13 Ranexa - PO 500 mg BID MARTHA Administration
[2019-04-23] MEDS ORDERED: ATORVASTATIN CA 80 MG TABLET (FP) PO SCH (22:00)
[2019-04-24] MEDS: RANOLAZINE E.R. 500 MG TABLET (FP) PO SCH ×2 (00:43→09:13)
[2019-04-24 05:07] VITALS: BMI 26.2
[2019-04-24] MEDS ORDERED: glipiZIDE-XL 5 MG TAB.ER.24 PO SCH (07:00)
[2019-04-24] MEDS ORDERED: LISINOPRIL 10 MG TABLET (FP) PO SCH (10:00)
[2019-04-24] MEDS ORDERED: ASPIRIN 81 MG CHEWABLE TABLETS PO SCH (10:00)
[2019-04-24] MEDS ORDERED: CLOPIDOGREL BISULFATE 75 MG TABLET (FP) PO SCH (10:00)
--- NOTE | 2019-04-24 10:06 | EKG ---
Test Reason : Blood Pressure : / mmHG Vent. Rate : 089 BPM Atrial Rate : 089 BPM P-R Int : 182 ms QRS Dur : 136 ms QT Int : 394 ms P-R-T Axes : 043 017 140 degrees QTc Int : 479 ms NORMAL SINUS RHYTHM POSSIBLE LEFT ATRIAL ENLARGEMENT NON-SPECIFIC INTRA-VENTRICULAR CONDUCTION BLOCK MARKED T WAVE ABNORMALITY, CONSIDER ANTEROLATERAL ISCHEMIA ABNORMAL ECG Confirmed by Chad Adams MD ([id number]) on 04/24/2019 10:06:01 AM Referred By: Confirmed By:Chad Adams MD
[2019-04-24] MEDS ORDERED: PT OWN MED DRAWER 7, Y5N ONE (11:11)
[2019-04-24] MEDS ORDERED: SODIUM CHLORIDE 250 ML IV PRN (14:09)
--- NOTE | 2019-04-24 14:09 | CONSULT ---
Consult - text type - Consultation Consultation Note: Renal consult for ESRD on HD wit hyperkalemia This is a 48 year old gentleman with history of ESRD on HD (MWF x 4 years), CAD s/p PCI/CABG, CHF, hypertension and DM presented with abd discomfort , diaphragmatic pain and nausea and noted to have elevated troponin and K of 6.3. He had missed his scheduled dialysis yesterday. s/p urgent dialysis yesterday as an inpatient. Denies any chest pain, fever, chills, N/V/D. Feels better today. No chest pain currently. PMhx: as above Allergies; NKDA Family Hx: NC Social Hx: No T/A/D ROS: as per HPI, all other pertinent ros negative Home Medications Medication Instructions Recorded Aspirin [ASA -] 81 mg PO DAILY 04/21/15 Atorvastatin Ca [Lipitor] 80 mg PO HS 04/21/15 Clopidogrel Bisulfate [Plavix -] 75 mg PO DAILY 04/21/15 Glipizide [Glipizide ER] 5 mg PO BID 04/21/15 Metoprolol Succinate [Toprol XL -] 50 mg PO BID #0 tab.sr.24h 12/03/15 Ranolazine [Ranexa] 500 mg PO BID 06/22/16 Furosemide [Lasix] 60 mg PO ASDIR #30 tablet 10/14/18 Lisinopril 10 mg PO DAILY #30 tablet 10/14/18 Vital Signs Temperature 98 F 04/24/19 09:19 Pulse Rate 76 04/24/19 09:19 Respiratory Rate 18 04/24/19 09:19 Blood Pressure 133/87 04/24/19 09:19 O2 Sat by Pulse Oximetry (%) 98 04/24/19 09:20 Intake & Output 04/21/19 04/22/19 04/23/19 04/24/19 23:59 23:59 23:59 23:59 Intake Total 500 650 Output Total 2500 Balance -2000 650 Weight 76.022 kg 76.022 kg NAD awake and alert neck supple, no JVD + systolic murmur, RRR CTA soft NT/ND no LE edema CBC, BMP 04/23/19 15:18 Current Medications Aspirin (Asa -) 81 mg PO DAILY [facility] Last Admin: 04/24/19 09:12 Dose: 81 mg Atorvastatin Calcium (Lipitor -) 80 mg PO HS [facility] Last Admin: 04/24/19 00:43 Dose: 80 mg Clopidogrel Bisulfate (Plavix -) 75 mg PO DAILY [facility] Last Admin: 04/24/19 09:12 Dose: 75 mg Glipizide (Glucotrol Xl -) 5 mg PO DAILY@0700 [facility] Last Admin: 04/24/19 06:32 Dose: 5 mg Sodium Chloride (Normal Saline -) 250 mls @ 3,000 mls/hr IV PRN PRN PRN Reason: Hypotension during Dialysis Stop: 04/24/19 17:20 Lisinopril (Prinivil) 10 mg PO DAILY [facility] Last Admin: 04/24/19 09:13 Dose: 10 mg Metoprolol Succinate (Toprol Xl -) 50 mg PO DAILY [facility] Last Admin: 04/24/19 09:13 Dose: 50 mg Ranolazine (Ranexa -) 500 mg PO BID [facility] Last Admin: 04/24/19 09:13 Dose: 500 mg 48 year old gentleman with history of ESRD on HD (MWF x 4 years), CAD s /p PCI/CABG, CHF, hypertension and DM presented with abd discomfort, diaphragmatic pain and nausea and noted to have elevated troponin and K of 6.3. 1. ESRD on HD 2. Hyperkalemia 3. Elevated troponin with hx of CAD 4. CHF 5. Abdominal discomfort s/p urgent dialysis yesterday evening, no acute need for dialysis today. Check BMP to ensure that K is improved will continue HD on MWF schedule Renal diet, 1.2L fluid restriction Cardiology consult for elevated troponin Continue Tele monitoring if pt remains as a inpatient will arrange for dialysis tomorrow. Miles Gomez DO
[2019-04-24 14:23] LABS: BLOOD UREA NITROGEN 43.7 mg/dL (7-18); CREATININE 6.6 mg/dL (0.55-1.3); POTASSIUM 4.3 mmol/L (3.5-5.1)
--- NOTE | 2019-04-24 14:58 | CON.CARD ---
Consult Consult Specialty:: Cardiology Referred by:: Dr. Vogel Reason for Consultation:: Elevated TnI - History of Present Illness Chief Complaint: Nausea and vomiting History of Present Illness: 48 M with ESRD on HD, DM, CAD s/p CABG and multiple prior PCIs (last 5 month ago by his report) presented with persistent nausea and vomiting, missed HD session. Hyperkalemic, required urgent HD yesterday. TnI found to be elevated 1.4, 1.4 repeat. Patient states he has been having upper abdominal pain and nausea for 6 months, has seen GI but reports no etiology determined. Usual anginal equivalent is exertional dyspnea (he notes that originally, he would have exertional CP but now it has evolved to NICOLE). This upper abdominal pain was different than his usual angina. He also reports that he is due for "tests" at [place] and Tuesday and was recommended to have a heart transplant for refractory CAD/cardiomyopathy. EF moderate to severely reduced on prior echos. - History Source History Provided By: Patient - Past Medical History Cardio/Vascular: Yes: CAD (s/p CABG and multiple PCI/ chronic angina. ), CHF, HTN, Hyperlipdemia. No: AFIB Pulmonary: Yes: Other (pleural effusion) Renal/: Yes: Renal Failure Endocrine: Yes: Diabetes Mellitus - Past Surgical History Past Surgical History: Yes: CABG (04/09/15 at [facility]), Stent (7 cardiac stents) - Alcohol/Substance Use Hx Alcohol Use: No History of Substance Use: reports: None - Smoking History Smoking history: Never smoked Have you smoked in the past 12 months: No Aproximately how many cigarettes per day: 0 - Social History Usual Living Arrangement: Alone ADL: Independent Occupation: works in a assisted History of Recent Travel: No Home Medications - Allergies Allergies/Adverse Reactions: Allergies Allergy/AdvReac Type Severity Reaction Status Date / Time No Known Allergies Allergy Verified 04/23/19 15:22 - Home Medications Home Medications: Ambulatory Orders Aspirin [ASA -] 81 mg PO DAILY 04/21/15 Atorvastatin Ca [Lipitor] 80 mg PO HS 04/21/15 Clopidogrel Bisulfate [Plavix -] 75 mg PO DAILY 04/21/15 Glipizide [Glipizide ER] 5 mg PO BID 04/21/15 Metoprolol Succinate [Toprol XL -] 50 mg PO BID #0 tab.sr.24h 12/03/15 Ranolazine [Ranexa] 500 mg PO BID 06/22/16 Furosemide [Lasix] 60 mg PO ASDIR #30 tablet 10/14/18 Lisinopril 10 mg PO DAILY #30 tablet 10/14/18 Family Medical History Family History: Unremarkable Review of Systems Findings/Remarks: see HPI - Review of Systems Constitutional: reports: No Symptoms Eyes: reports: No Symptoms HENT: reports: No Symptoms Neck: reports: No Symptoms Cardiovascular: reports: Other (chronic stable angina (NICOLE).) Gastrointestinal: reports: Abdominal Pain Genitourinary: reports: No Symptoms Breasts: reports: No Symptoms Reported Musculoskeletal: reports: No Symptoms Integumentary: reports: No Symptoms Neurological: reports: No Symptoms Endocrine: reports: No Symptoms Hematology/Lymphatic: reports: No Symptoms Psychiatric: reports: No Symptoms - Risk Factors Known Risk Factors: Yes: Diabetes Mellitus, Other (Known CAD.) Vital Signs: Vital Signs Temperature 97.8 F 04/24/19 13:35 Pulse Rate 69 04/24/19 13:35 Respiratory Rate 14 04/24/19 13:35 Blood Pressure 126/76 04/24/19 13:35 O2 Sat by Pulse Oximetry (%) 98 04/24/19 09:20 Constitutional: Yes: No Distress, Calm Eyes: Yes: Conjunctiva Clear, EOM Intact HENT: Yes: Atraumatic, Normocephalic Neck: Yes: Trachea Midline Respiratory: Yes: CTA Bilaterally Gastrointestinal: Yes: Soft (NT, no rebound or guarding.) Cardiovascular: Yes: Regular Rate and Rhythm JVD: No Carotid Bruit: No Heart Sounds: Yes: S1, S2 (RRR. no M/R/G) Edema: No Neurological: Yes: Alert, Oriented - Other Data Labs, Other Data: CBC, BMP 04/23/19 15:18 04/24/19 13:25 INR, PTT INR 1.36 (0.83-1.09) H 04/23/19 15:18 Troponin, BNP 04/23/19 04/23/19 04/23/19 15:18 15:18 18:32 Troponin I 1.73 H* 1.46 H* B-Natriuretic Peptide > 574877.0 H 04/23/19 23:40 Troponin I 1.41 H* B-Natriuretic Peptide Troponin, BNP 04/23/19 04/23/19 04/23/19 15:18 15:18 18:32 Troponin I 1.73 H* 1.46 H* B-Natriuretic Peptide > 555044.0 H 04/23/19 23:40 Troponin I 1.41 H* B-Natriuretic Peptide Laboratory Tests 04/23/19 04/23/19 04/23/19 15:18 15:18 15:18 WBC 10.5 H Hgb 12.2 Plt Count 193 D INR Sodium 132 L Potassium 6.3 H* BUN 69.7 H Creatinine 10.1 H* Creatine Kinase 143 Troponin I B-Natriuretic Peptide > 842382.0 H 04/23/19 04/23/19 04/23/19 15:18 18:32 23:40 WBC Hgb Plt Count INR 1.36 H Sodium Potassium BUN Creatinine Creatine Kinase Troponin I 1.46 H* 1.41 H* B-Natriuretic Peptide 04/24/19 13:25 WBC Hgb Plt Count INR Sodium 134 L Potassium 4.3 BUN 43.7 H Creatinine 6.6 H Creatine Kinase Troponin I B-Natriuretic Peptide NSR 89bpm; LAE; Diffuse NSST/T wave changes I, avL, V4-V6 No change since 09/2018 Echo: Pending Prior Cardiac Procedures: CABG, PTCA with Stent Imaging - Results Chest X-ray: Image Reviewed (Chronic small to moderate right pleural effusion) EKG: Image Reviewed Assessment/Plan IMP: 1. CAD s/p CABG, multiple PCIs, chronic angina with chronic ischemic cardiomyopathy with refractory CAD not amenable to further revasc. Referred for transplant evaluation for refractory CAD 2. Hyperkalemia in setting of missed HD session, now resolved 3. Chronic nausea and abdominal pain, worsened in setting of missed HD/ uremia, also improved. 4. Chronically abnl ECG 5. Elevated TnI 6. DM REC: 1. Hyperkalemia resolved s/p urgent HD; no arrhythmias on telemetry. Compliance w/ HD emphasized. 2. Mildly elevated/ flat TnI with normal CK occurs in setting of known CAD refractory to further revascularization, chronic CHF, ESRD with missed HD and likely relative volume overload; do not suspect ACS as ECG stable, sx unlike usual angina and enzyme trend flat. Continue medical therapy. 3. Repeat echo; RHC planned for later this week at [facility] to move forward with transplant evaluation.
--- NOTE | 2019-04-24 19:11 | PN ---
Progress Note, Physician - Current Medication List Current Medications: Active Medications Aspirin (Asa -) 81 mg PO DAILY [facility] Last Admin: 04/24/19 09:12 Dose: 81 mg Atorvastatin Calcium (Lipitor -) 80 mg PO HS [facility] Last Admin: 04/24/19 00:43 Dose: 80 mg Clopidogrel Bisulfate (Plavix -) 75 mg PO DAILY [facility] Last Admin: 04/24/19 09:12 Dose: 75 mg Glipizide (Glucotrol Xl -) 5 mg PO DAILY@0700 [facility] Last Admin: 04/24/19 06:32 Dose: 5 mg Sodium Chloride (Normal Saline -) 250 mls @ 3,000 mls/hr IV PRN PRN PRN Reason: Hypotension during Dialysis Stop: 04/24/19 17:20 Sodium Chloride (Normal Saline -) 250 mls @ 3,000 mls/hr IV PRN PRN PRN Reason: Hypotension during Dialysis Stop: 04/25/19 14:09 Lisinopril (Prinivil) 10 mg PO DAILY [facility] Last Admin: 04/24/19 09:13 Dose: 10 mg Metoprolol Succinate (Toprol Xl -) 50 mg PO DAILY [facility] Last Admin: 04/24/19 09:13 Dose: 50 mg Ranolazine (Ranexa -) 500 mg PO BID [facility] Last Admin: 04/24/19 09:13 Dose: 500 mg - Objective Vital Signs: Vital Signs Temperature 97.8 F 04/24/19 13:35 Pulse Rate 69 04/24/19 13:35 Respiratory Rate 14 04/24/19 13:35 Blood Pressure 126/76 04/24/19 13:35 O2 Sat by Pulse Oximetry (%) 98 04/24/19 09:20 Constitutional: Yes: No Distress HENT: Yes: Atraumatic Neck: Yes: Supple Cardiovascular: Yes: Regular Rate and Rhythm Respiratory: Yes: CTA Bilaterally Gastrointestinal: Yes: Normal Bowel Sounds Extremities: Yes: WNL Neurological: Yes: Alert, Oriented Labs: CBC, BMP 04/23/19 15:18 04/24/19 13:25 INR, PTT INR 1.36 (0.83-1.09) H 04/23/19 15:18 Problem List - Problems (1) ESRD (end stage renal disease) on dialysis Assessment/Plan: doing well Code(s): N18.6 - END STAGE RENAL DISEASE; Z99.2 - DEPENDENCE ON RENAL DIALYSIS (2) CAD (coronary artery disease) Code(s): I25.10 - ATHSCL HEART DISEASE OF [place] CORONARY ARTERY W/O ANG PCTRS (3) CHF (congestive heart failure) Code(s): I50.9 - HEART FAILURE, UNSPECIFIED (4) Diabetes mellitus Code(s): E11.9 - TYPE 2 DIABETES MELLITUS WITHOUT COMPLICATIONS (5) HTN (hypertension) Code(s): I10 - ESSENTIAL (PRIMARY) HYPERTENSION (6) Hyperlipidemia Code(s): E78.5 - HYPERLIPIDEMIA, UNSPECIFIED Assessment/Plan continue home meds K is normal dc in am if ok with nephro
--- NOTE | 2019-04-24 20:03 | DS ---
Physical Examination Vital Signs: Vital Signs Temperature 97.8 F 04/24/19 18:00 Pulse Rate 68 04/24/19 18:00 Respiratory Rate 18 04/24/19 18:00 Blood Pressure 141/85 04/24/19 18:00 O2 Sat by Pulse Oximetry (%) 98 04/24/19 09:20 Constitutional: Yes: No Distress HENT: Yes: Atraumatic Neck: Yes: Supple Cardiovascular: Yes: Regular Rate and Rhythm Respiratory: Yes: CTA Bilaterally Gastrointestinal: Yes: Normal Bowel Sounds Extremities: Yes: WNL Edema: No Neurological: Yes: Alert, Oriented Labs: CBC, BMP 04/23/19 15:18 04/24/19 13:25 Discharge Summary Reason For Visit: END STAGE RENAL FAILURE ON DIALYSIS Current Active Problems Elevated troponin level (Acute) Hyperkalemia (Acute) ESRD (end stage renal disease) on dialysis (Chronic) Condition: Stable - Instructions Referrals: ON STAFF,NOT [Primary Care Provider] - Disposition: HOME - Home Medications Comprehensive Discharge Medication List: Ambulatory Orders Aspirin [ASA -] 81 mg PO DAILY 04/21/15 Atorvastatin Ca [Lipitor] 80 mg PO HS 04/21/15 Clopidogrel Bisulfate [Plavix -] 75 mg PO DAILY 04/21/15 Glipizide [Glipizide ER] 5 mg PO BID 04/21/15 Metoprolol Succinate [Toprol XL -] 50 mg PO BID #0 tab.sr.24h 12/03/15 Ranolazine [Ranexa] 500 mg PO BID 06/22/16 Furosemide [Lasix] 60 mg PO ASDIR #30 tablet 10/14/18 Lisinopril 10 mg PO DAILY #30 tablet 10/14/18 wnats to go home tonight stable to be dc hd tomorrow at his dialysis center
[2019-04-24 20:34] VITALS: BP 135/82; PULSE 73; TEMP 98
== END 2019-04-24 20:00 | disposition home or self-care (01) ==
LOC: JER 14:57 → UNDOADMOB 17:58 → JERBED 17:58 → INTOOBSV 17:58 → JERBED 19:00 → J4S 04-24 00:13
PROVIDERS: ADMIT Internal Medicine; ATTEND Internal Medicine
PROC: 3E033VG Introduction of Insulin into Peripheral Vein, Percutaneous Approach (ICD-10-PCS; principal; 2019-04-23)
PROC: 3E033GC Introduction of Other Therapeutic Substance into Peripheral Vein, Percutaneous Approach (ICD-10-PCS; 2019-04-23)
DX: E11.22 Type 2 diabetes mellitus with diabetic chronic kidney disease (principal); N18.6 End stage renal disease; R77.8 Other specified abnormalities of plasma proteins; E87.5 Hyperkalemia; R94.31 Abnormal electrocardiogram [ECG] [EKG]; I50.20 Unspecified systolic (congestive) heart failure; Z99.2 Dependence on renal dialysis; Z79.84 Long term (current) use of oral hypoglycemic drugs; I25.119 Atherosclerotic heart disease of native coronary artery with unspecified angina pectoris; I25.5 Ischemic cardiomyopathy; Z95.1 Presence of aortocoronary bypass graft; Z79.82 Long term (current) use of aspirin; Z79.02 Long term (current) use of antithrombotics/antiplatelets
CPT/HCPCS: 36415; 71046-TC-FY; 80048; 80053; 82550; 82962; 83690; 83735; 83880; 84484; 85025; 85610; 86803; 87340; 93005; 93010; 96374; 96375; 99285-25; G0378